=== PATIENT | male | born 1945 | race Caucasian/White ===

== ENCOUNTER 2020-11-14 12:29 | Inpatient (IN) ==
[2020-11-14 13:54] LABS: Basophils % 0.1 % (0.0-0.8); Hematocrit 41.7 VOL% (42.0-52.0); Immature Granulocytes % 0.4 %; Immature Granulocytes Absolute 0.03 #; Lymphocytes # 0.6 10*3/uL (1.4-4.0); Lymphocytes % 7.8 % (21.2-54.2); Mean Corpuscular Volume 83.2 FL (87-102); Mean Platelet Volume 10.1 FL (9.6-12.0); Monocytes % 5.2 % (1.7-12.7); Neutrophils % 86.5 % (38.7-73.9); Platelet Count 260 T/CUMM (130-400); Red Blood Count 5.01 MC/CUMM (3.8-5.5); Red Cell Distribution Width 12.2 % (9.3-17.3); White Blood Count 8.1 T/CUMM (4-12)
[2020-11-14 13:57] LABS: INR 1.2; PT Patient Result 12.4 SECS (9.8-11.9)
[2020-11-14 14:12] LABS: Alanine Aminotransferase 32 U/L (16-61); Alkaline Phosphatase 66 U/L (45-117); Aspartate Amino Transferase 42 U/L (0-37); Blood Urea Nitrogen 34 MG/DL (7-18); Carbon Dioxide 27 MMOL/L (21-32); Estimated Glom Filtration Rate 84 ML/MIN; Ferritin 758.8 ng/ml (26-388); Glucose 282 MG/DL (74-106); Osmolality,Calculated 281.5 MOS/KG (273-304); Potassium 3.2 MMOL/L (3.5-5.1); Sodium 132 MMOL/L (136-145); Total Protein 7.6 G/DL (6.4-8.3)
[2020-11-14] MEDS ORDERED: ENOXAPARIN 100 MG/ML SYRINGE SUBCUT STA (14:18)
[2020-11-14] MEDS ORDERED: GLUCAGON 1 MG VIAL IM PRN (15:55)
[2020-11-14] MEDS ORDERED: DOCUSATE SODIUM 100 MG CAPSULE PO PRN (15:55)
[2020-11-14] MEDS ORDERED: hydrALAZINE 20 MG/1 ML VIAL IV PRN (15:55)
[2020-11-14] MEDS ORDERED: AZITHROMYCIN INJ 500 MG in SODIUM CHLORIDE 0.9% 250 ML IV ONE (16:05)
[2020-11-14] MEDS ORDERED: ENOXAPARIN 40 MG/0.4 ML SYRINGE SUBCUT SCH (16:30)
[2020-11-14] MEDS: SODIUM CHLORIDE 0.9% 1,000 ML IV SCH ×2 (17:15→23:12)
[2020-11-14] MEDS: INSULIN LISPRO 100 UNIT/ML SUBCUT SCH ×2 (17:51→20:20)
[2020-11-14] MEDS: ACETAMINOPHEN 325 MG TABLET PO PRN (20:20)
[2020-11-14] MEDS: FAMOTIDINE 20 MG TABLET PO SCH (20:20)
[2020-11-14] MEDS: MELATONIN 3 MG TABLET PO PRN (20:20)
[2020-11-14] MEDS: ASCORBIC ACID 500 MG TABLET PO SCH (20:20)
[2020-11-15 05:34] LABS: Basophils % 0.1 % (0.0-0.8); Eosinophils % 0.1 % (0.00-10.9); Hemoglobin 13.3 GM/DL (14.0-18.0); Immature Granulocytes % 0.8 %; Immature Granulocytes Absolute 0.06 #; Lymphocytes # 0.8 10*3/uL (1.4-4.0); Lymphocytes % 10.9 % (21.2-54.2); Mean Corpuscular Volume 87.2 FL (87-102); Mean Platelet Volume 9.8 FL (9.6-12.0); Monocytes % 4.5 % (1.7-12.7); Neutrophils % 83.6 % (38.7-73.9); Platelet Count 237 T/CUMM (130-400); Red Blood Count 4.36 MC/CUMM (3.8-5.5); Red Cell Distribution Width 12.4 % (9.3-17.3); White Blood Count 7.6 T/CUMM (4-12)
[2020-11-15 05:56] LABS: Albumin 2.4 G/DL (3.4-5.0); Calcium 8.3 MG/DL (8.5-10.1); Ferritin 709.6 ng/ml (26-388); Osmolality,Calculated 284.8 MOS/KG (273-304); Risk Ratio 3.04; Thyroid Stimulating Hormone 0.742 uIU/ml (0.358-3.74); Total Protein 6.4 G/DL (6.4-8.3)
[2020-11-15 05:58] LABS: Band Neutrophils 1 % (0-10); Hypochromasia Slight; Lymphocytes 11 % (20-55); Microcytosis Slight; Platelet Estimate Adequate; Segmented Neutrophils 87 % (50-85); Total Cells Counted 100
[2020-11-15 07:07] LABS: Sedimentation Rate-Westergren 81 MM/HR (0-20)
[2020-11-15] MEDS: AZITHROMYCIN 250 MG TABLET PO SCH (08:16)
[2020-11-15] MEDS: POTASSIUM CHLORIDE 20 MEQ TABLET PO PRN ×4 (08:16→14:09)
[2020-11-15] MEDS: DEXAMETHASONE 4 MG/1 ML VIAL IV SCH (08:16)
[2020-11-15] MEDS: ZINC GLUCONATE 50 MG TABLET PO SCH (08:17)
[2020-11-15] MEDS: FAMOTIDINE 20 MG TABLET PO SCH ×2 (08:17→22:23)
[2020-11-15] MEDS: ASCORBIC ACID 500 MG TABLET PO SCH ×2 (08:17→22:23)
[2020-11-15] MEDS: CHOLECALCIFEROL 1,000 UNIT TABLET PO SCH (08:17)
[2020-11-15] MEDS: INSULIN LISPRO 100 UNIT/ML SUBCUT SCH ×4 (08:44→22:23)
[2020-11-15] MEDS: ENOXAPARIN 40 MG/0.4 ML SYRINGE SUBCUT SCH (09:20)
[2020-11-15] MEDS: SODIUM CHLORIDE 0.9% 1,000 ML IV SCH (11:28)
[2020-11-15] MEDS: TAMSULOSIN 0.4 MG CAPSULE PO SCH (14:07)
[2020-11-15] MEDS: ACETAMINOPHEN 325 MG TABLET PO PRN (14:09)
[2020-11-15] MEDS: SIMVASTATIN 20 MG TABLET PO SCH (22:23)
[2020-11-15] MEDS: MELATONIN 3 MG TABLET PO PRN (23:16)
[2020-11-16 05:43] LABS: Basophils % 0.1 % (0.0-0.8); Hematocrit 36.6 VOL% (42.0-52.0); Immature Granulocytes % 0.7 %; Immature Granulocytes Absolute 0.05 #; Lymphocytes # 0.6 10*3/uL (1.4-4.0); Lymphocytes % 8.6 % (21.2-54.2); Mean Corpuscular HGB Conc 35.5 GM/DL (32-36); Mean Corpuscular Volume 86.1 FL (87-102); Monocytes % 4.6 % (1.7-12.7); Platelet Count 278 T/CUMM (130-400); Red Blood Count 4.25 MC/CUMM (3.8-5.5); Red Cell Distribution Width 12.2 % (9.3-17.3); White Blood Count 6.7 T/CUMM (4-12)
[2020-11-16 06:05] LABS: Albumin 2.2 G/DL (3.4-5.0); Bilirubin,Total 0.6 MG/DL (0.2-1.0); Calcium 8.3 MG/DL (8.5-10.1); Ferritin 677.4 ng/ml (26-388); Osmolality,Calculated 289.5 MOS/KG (273-304); Potassium 3.8 MMOL/L (3.5-5.1); Total Protein 6.4 G/DL (6.4-8.3)
[2020-11-16 07:25] LABS: Sedimentation Rate-Westergren 88 MM/HR (0-20)
[2020-11-16] MEDS: ENOXAPARIN 40 MG/0.4 ML SYRINGE SUBCUT SCH (08:32)
[2020-11-16] MEDS: INSULIN LISPRO 100 UNIT/ML SUBCUT SCH ×4 (08:32→21:33)
[2020-11-16] MEDS: ASPIRIN EC 81 MG TABLET PO SCH (08:32)
[2020-11-16] MEDS: DEXAMETHASONE 4 MG/1 ML VIAL IV SCH (08:32)
[2020-11-16] MEDS: AZITHROMYCIN 250 MG TABLET PO SCH (08:32)
[2020-11-16] MEDS: TAMSULOSIN 0.4 MG CAPSULE PO SCH (08:32)
[2020-11-16] MEDS: FAMOTIDINE 20 MG TABLET PO SCH ×2 (08:33→21:20)
[2020-11-16] MEDS: ZINC GLUCONATE 50 MG TABLET PO SCH (08:33)
[2020-11-16] MEDS: ASCORBIC ACID 500 MG TABLET PO SCH ×2 (08:33→21:19)
[2020-11-16] MEDS: lisinopriL 10 MG TABLET PO SCH (08:33)
[2020-11-16] MEDS: CHOLECALCIFEROL 1,000 UNIT TABLET PO SCH (08:33)
[2020-11-16] MEDS: GLIMEPIRIDE 4 MG TABLET PO SCH (08:34)
[2020-11-16] MEDS ORDERED: SODIUM CHLORIDE 0.9% 1,000 ML IV PRN (13:26)
[2020-11-16] MEDS: SIMVASTATIN 20 MG TABLET PO SCH (21:19)
[2020-11-16] MEDS: MELATONIN 3 MG TABLET PO PRN (21:20)
[2020-11-17 05:03] LABS: Hematocrit 38.1 VOL% (42.0-52.0); Hemoglobin 13.4 GM/DL (14.0-18.0); Immature Granulocytes % 0.7 %; Immature Granulocytes Absolute 0.06 #; Lymphocytes # 0.6 10*3/uL (1.4-4.0); Lymphocytes % 7.3 % (21.2-54.2); Mean Corpuscular HGB Conc 35.2 GM/DL (32-36); Mean Corpuscular Volume 85.8 FL (87-102); Mean Platelet Volume 9.6 FL (9.6-12.0); Platelet Count 324 T/CUMM (130-400); Red Blood Count 4.44 MC/CUMM (3.8-5.5); White Blood Count 8.2 T/CUMM (4-12)
[2020-11-17 05:33] LABS: Albumin 2.2 G/DL (3.4-5.0); Bilirubin,Total 0.8 MG/DL (0.2-1.0); Calcium 8.6 MG/DL (8.5-10.1); Osmolality,Calculated 290.5 MOS/KG (273-304); Potassium 3.9 MMOL/L (3.5-5.1); Total Protein 6.3 G/DL (6.4-8.3)
[2020-11-17] MEDS: ASPIRIN EC 81 MG TABLET PO SCH (09:40)
[2020-11-17] MEDS: lisinopriL 10 MG TABLET PO SCH (09:40)
[2020-11-17] MEDS: GLIMEPIRIDE 4 MG TABLET PO SCH (09:40)
[2020-11-17] MEDS: ASCORBIC ACID 500 MG TABLET PO SCH ×2 (09:40→20:29)
[2020-11-17] MEDS: TAMSULOSIN 0.4 MG CAPSULE PO SCH (09:40)
[2020-11-17] MEDS: CHOLECALCIFEROL 1,000 UNIT TABLET PO SCH (09:40)
[2020-11-17] MEDS: AZITHROMYCIN 250 MG TABLET PO SCH (09:40)
[2020-11-17] MEDS: ZINC GLUCONATE 50 MG TABLET PO SCH (09:40)
[2020-11-17] MEDS: FAMOTIDINE 20 MG TABLET PO SCH ×2 (09:40→20:30)
[2020-11-17] MEDS: DEXAMETHASONE 4 MG/1 ML VIAL IV SCH (09:46)
[2020-11-17] MEDS: INSULIN LISPRO 100 UNIT/ML SUBCUT SCH ×4 (09:46→20:30)
[2020-11-17] MEDS: ENOXAPARIN 40 MG/0.4 ML SYRINGE SUBCUT SCH (09:47)
[2020-11-17] MEDS: ONDANSETRON 4 MG/2 ML VIAL IV PRN ×2 (10:04→16:06)
[2020-11-17] MEDS: ACETAMINOPHEN 325 MG TABLET PO PRN (20:30)
[2020-11-17] MEDS: SIMVASTATIN 20 MG TABLET PO SCH (20:30)
[2020-11-17] MEDS: MELATONIN 3 MG TABLET PO PRN (20:30)
[2020-11-18] MEDS: ENOXAPARIN 100 MG/ML SYRINGE SUBCUT SCH ×2 (02:30→11:52)
[2020-11-18 04:40] LABS: Basophils % 0.2 % (0.0-0.8); Eosinophils % 0.2 % (0.00-10.9); Hematocrit 36.2 VOL% (42.0-52.0); Hemoglobin 12.6 GM/DL (14.0-18.0); Immature Granulocytes % 0.6 %; Immature Granulocytes Absolute 0.04 #; Lymphocytes # 0.5 10*3/uL (1.4-4.0); Lymphocytes % 7.1 % (21.2-54.2); Mean Corpuscular HGB Conc 34.8 GM/DL (32-36); Mean Corpuscular Volume 87.4 FL (87-102); Mean Platelet Volume 9.8 FL (9.6-12.0); Monocytes % 3.9 % (1.7-12.7); Platelet Count 333 T/CUMM (130-400); Red Blood Count 4.14 MC/CUMM (3.8-5.5); Red Cell Distribution Width 12.1 % (9.3-17.3); White Blood Count 6.5 T/CUMM (4-12)
[2020-11-18 05:01] LABS: Albumin 2.4 G/DL (3.4-5.0); Bilirubin,Total 0.7 MG/DL (0.2-1.0); Calcium 8.8 MG/DL (8.5-10.1); Osmolality,Calculated 286.5 MOS/KG (273-304); Potassium 3.6 MMOL/L (3.5-5.1); Total Protein 6.3 G/DL (6.4-8.3)
[2020-11-18] MEDS ORDERED: ALBUTEROL INHALER 18 GM INH PRN (06:59)
[2020-11-18] MEDS: ONDANSETRON 4 MG/2 ML VIAL IV PRN (07:19)
[2020-11-18] MEDS: lisinopriL 10 MG TABLET PO SCH (08:07)
[2020-11-18] MEDS: ASPIRIN EC 81 MG TABLET PO SCH (08:07)
[2020-11-18] MEDS: AZITHROMYCIN 250 MG TABLET PO SCH (08:07)
[2020-11-18] MEDS: DEXAMETHASONE 4 MG/1 ML VIAL IV SCH (08:07)
[2020-11-18] MEDS: FAMOTIDINE 20 MG TABLET PO SCH ×2 (08:07→20:23)
[2020-11-18] MEDS: TAMSULOSIN 0.4 MG CAPSULE PO SCH (08:07)
[2020-11-18] MEDS: ZINC GLUCONATE 50 MG TABLET PO SCH (08:07)
[2020-11-18] MEDS: GLIMEPIRIDE 4 MG TABLET PO SCH (08:07)
[2020-11-18] MEDS: CHOLECALCIFEROL 1,000 UNIT TABLET PO SCH (08:07)
[2020-11-18] MEDS: ASCORBIC ACID 500 MG TABLET PO SCH ×2 (08:07→20:23)
[2020-11-18] MEDS: ALBUTEROL INHALER 18 GM INH SCH ×4 (09:31→18:33)
[2020-11-18] MEDS: INSULIN LISPRO 100 UNIT/ML SUBCUT SCH ×4 (09:32→20:23)
[2020-11-18] MEDS: FLUTICASONE 50 MCG NASAL SPRAY 16 GM BOTTLE BOTH NARES SCH ×2 (10:15→20:23)
[2020-11-18] MEDS: LACTULOSE 20 GM/30 ML UDCUP PO PRN (14:39)
[2020-11-18] MEDS: SIMVASTATIN 20 MG TABLET PO SCH (20:23)
[2020-11-18] MEDS: ACETAMINOPHEN 325 MG TABLET PO PRN (20:23)
[2020-11-18] MEDS: MELATONIN 3 MG TABLET PO PRN (20:23)
[2020-11-19] MEDS: ENOXAPARIN 100 MG/ML SYRINGE SUBCUT SCH ×2 (00:30→13:35)
[2020-11-19] MEDS: ALBUTEROL INHALER 18 GM INH SCH ×7 (00:30→23:15)
[2020-11-19] MEDS: CHOLECALCIFEROL 1,000 UNIT TABLET PO SCH (08:24)
[2020-11-19] MEDS: GLIMEPIRIDE 4 MG TABLET PO SCH (08:24)
[2020-11-19] MEDS: LORazepam 0.5 MG TABLET PO ONE ×2 (08:25→09:29)
[2020-11-19] MEDS: FAMOTIDINE 20 MG TABLET PO SCH ×2 (08:25→20:59)
[2020-11-19] MEDS: ZINC GLUCONATE 50 MG TABLET PO SCH (08:25)
[2020-11-19] MEDS: TAMSULOSIN 0.4 MG CAPSULE PO SCH (08:25)
[2020-11-19] MEDS: ASCORBIC ACID 500 MG TABLET PO SCH ×2 (08:25→20:59)
[2020-11-19] MEDS: lisinopriL 10 MG TABLET PO SCH (08:25)
[2020-11-19] MEDS: ASPIRIN EC 81 MG TABLET PO SCH (08:25)
[2020-11-19] MEDS: DEXAMETHASONE 4 MG/1 ML VIAL IV SCH (08:25)
[2020-11-19] MEDS: FLUTICASONE 50 MCG NASAL SPRAY 16 GM BOTTLE BOTH NARES SCH ×2 (09:13→21:01)
[2020-11-19] MEDS: INSULIN LISPRO 100 UNIT/ML SUBCUT SCH ×4 (09:13→20:58)
[2020-11-19 09:14] LABS: Basophils % 0.1 % (0.0-0.8); Eosinophils # 0.1 10*3/uL (0.0-0.87); Eosinophils % 1.2 % (0.00-10.9); Hemoglobin 13.4 GM/DL (14.0-18.0); Immature Granulocytes % 0.7 %; Immature Granulocytes Absolute 0.05 #; Lymphocytes # 0.4 10*3/uL (1.4-4.0); Lymphocytes % 5.6 % (21.2-54.2); Mean Corpuscular HGB Conc 35.3 GM/DL (32-36); Mean Platelet Volume 9.8 FL (9.6-12.0); Monocytes % 3.4 % (1.7-12.7); Platelet Count 413 T/CUMM (130-400); Red Blood Count 4.42 MC/CUMM (3.8-5.5); Red Cell Distribution Width 12.2 % (9.3-17.3); White Blood Count 7.4 T/CUMM (4-12)
[2020-11-19 09:39] LABS: Albumin 2.4 G/DL (3.4-5.0); Bilirubin,Total 0.7 MG/DL (0.2-1.0); Calcium 8.9 MG/DL (8.5-10.1); Osmolality,Calculated 283.7 MOS/KG (273-304); Total Protein 6.8 G/DL (6.4-8.3)
[2020-11-19] MEDS ORDERED: ALUMINUM/MAGNES/SIMETH MAX STR 30 ML UDCUP PO PRN (09:58)
[2020-11-19] MEDS: SIMVASTATIN 20 MG TABLET PO SCH (20:59)
[2020-11-19] MEDS: MELATONIN 3 MG TABLET PO PRN (20:59)
[2020-11-20] MEDS: ENOXAPARIN 100 MG/ML SYRINGE SUBCUT SCH ×2 (01:47→11:47)
[2020-11-20] MEDS: ALBUTEROL INHALER 18 GM INH SCH ×5 (03:57→18:33)
[2020-11-20 06:21] LABS: Albumin 2.2 G/DL (3.4-5.0); Bilirubin,Total 0.6 MG/DL (0.2-1.0); Calcium 8.6 MG/DL (8.5-10.1); Ferritin 637.9 ng/ml (26-388); Osmolality,Calculated 274.1 MOS/KG (273-304); Potassium 3.7 MMOL/L (3.5-5.1); Total Protein 6.4 G/DL (6.4-8.3)
[2020-11-20] MEDS ORDERED: LORazepam 0.5 MG TABLET PO ONE (07:37)
[2020-11-20] MEDS: INSULIN LISPRO 100 UNIT/ML SUBCUT SCH ×7 (07:51→22:49)
[2020-11-20] MEDS: GLIMEPIRIDE 4 MG TABLET PO SCH (08:05)
[2020-11-20] MEDS: ASCORBIC ACID 500 MG TABLET PO SCH ×2 (08:06→20:50)
[2020-11-20] MEDS: FAMOTIDINE 20 MG TABLET PO SCH ×2 (08:06→20:50)
[2020-11-20] MEDS: ASPIRIN EC 81 MG TABLET PO SCH (08:06)
[2020-11-20] MEDS: FLUTICASONE 50 MCG NASAL SPRAY 16 GM BOTTLE BOTH NARES SCH ×2 (08:06→20:50)
[2020-11-20] MEDS: TAMSULOSIN 0.4 MG CAPSULE PO SCH (08:06)
[2020-11-20] MEDS: ZINC GLUCONATE 50 MG TABLET PO SCH (08:06)
[2020-11-20] MEDS: lisinopriL 10 MG TABLET PO SCH (08:06)
[2020-11-20] MEDS: CHOLECALCIFEROL 1,000 UNIT TABLET PO SCH (08:06)
[2020-11-20] MEDS: DEXAMETHASONE 4 MG/1 ML VIAL IV SCH (08:06)
[2020-11-20] MEDS ORDERED: LORazepam 0.5 MG TABLET PO PRN (15:48)
[2020-11-20] MEDS: MELATONIN 3 MG TABLET PO PRN (20:50)
[2020-11-20] MEDS: SIMVASTATIN 20 MG TABLET PO SCH (20:50)
[2020-11-21] MEDS: ENOXAPARIN 100 MG/ML SYRINGE SUBCUT SCH ×2 (01:24→11:45)
[2020-11-21] MEDS: ALBUTEROL INHALER 18 GM INH SCH ×7 (01:24→22:02)
[2020-11-21] MEDS: ASCORBIC ACID 500 MG TABLET PO SCH ×2 (08:18→22:02)
[2020-11-21] MEDS: FAMOTIDINE 20 MG TABLET PO SCH ×2 (08:19→22:02)
[2020-11-21] MEDS: CHOLECALCIFEROL 1,000 UNIT TABLET PO SCH (08:19)
[2020-11-21] MEDS: lisinopriL 10 MG TABLET PO SCH (08:20)
[2020-11-21] MEDS: ASPIRIN EC 81 MG TABLET PO SCH (08:20)
[2020-11-21] MEDS: ZINC GLUCONATE 50 MG TABLET PO SCH (08:20)
[2020-11-21] MEDS: TAMSULOSIN 0.4 MG CAPSULE PO SCH (08:20)
[2020-11-21] MEDS: GLIMEPIRIDE 4 MG TABLET PO SCH (08:20)
[2020-11-21] MEDS: INSULIN LISPRO 100 UNIT/ML SUBCUT SCH ×6 (08:22→18:50)
[2020-11-21] MEDS: DEXAMETHASONE 4 MG/1 ML VIAL IV SCH (08:24)
[2020-11-21] MEDS: FLUTICASONE 50 MCG NASAL SPRAY 16 GM BOTTLE BOTH NARES SCH ×2 (08:25→22:02)
[2020-11-21 10:39] LABS: Basophils % 0.1 % (0.0-0.8); Eosinophils % 0.4 % (0.00-10.9); Hematocrit 35.4 VOL% (42.0-52.0); Hemoglobin 12.5 GM/DL (14.0-18.0); Immature Granulocytes % 0.7 %; Immature Granulocytes Absolute 0.06 #; Lymphocytes # 0.3 10*3/uL (1.4-4.0); Lymphocytes % 3.1 % (21.2-54.2); Mean Corpuscular HGB Conc 35.3 GM/DL (32-36); Mean Corpuscular Volume 85.1 FL (87-102); Mean Platelet Volume 9.5 FL (9.6-12.0); Monocytes % 4.5 % (1.7-12.7); Neutrophils % 91.2 % (38.7-73.9); Platelet Count 391 T/CUMM (130-400); Red Blood Count 4.16 MC/CUMM (3.8-5.5); Red Cell Distribution Width 12.1 % (9.3-17.3); White Blood Count 8.5 T/CUMM (4-12)
[2020-11-21 10:51] LABS: Lymphocytes 3 % (20-55); Platelet Estimate Adequate; Segmented Neutrophils 93 % (50-85); Total Cells Counted 100
[2020-11-21 11:03] LABS: Albumin 2.3 G/DL (3.4-5.0); Bilirubin,Total 0.7 MG/DL (0.2-1.0); Calcium 8.4 MG/DL (8.5-10.1); Ferritin 723.7 ng/ml (26-388); Osmolality,Calculated 278.8 MOS/KG (273-304); Potassium 3.6 MMOL/L (3.5-5.1); Total Protein 6.3 G/DL (6.4-8.3)
[2020-11-21] MEDS ORDERED: FUROSEMIDE 40 MG/4 ML VIAL IV ONE (11:57)
[2020-11-21] MEDS: MEROPENEM 500 MG in SODIUM CHLORIDE 0.9% 100 ML IV SCH ×2 (14:40→23:03)
[2020-11-21] MEDS: MELATONIN 3 MG TABLET PO PRN (22:02)
[2020-11-21] MEDS: SIMVASTATIN 20 MG TABLET PO SCH (22:02)
[2020-11-22] MEDS: ENOXAPARIN 100 MG/ML SYRINGE SUBCUT SCH ×2 (00:50→12:29)
[2020-11-22] MEDS: INSULIN LISPRO 100 UNIT/ML SUBCUT SCH ×8 (02:04→22:30)
[2020-11-22] MEDS ORDERED: ADENOSINE 6 MG/2 ML VIAL IV ONE (03:28)
[2020-11-22] MEDS: ALBUTEROL INHALER 18 GM INH SCH ×5 (04:50→22:00)
[2020-11-22] MEDS: MEROPENEM 500 MG in SODIUM CHLORIDE 0.9% 100 ML IV SCH ×4 (04:51→22:30)
[2020-11-22] MEDS ORDERED: AMIODARONE 150 MG/3 ML VIAL ONE (05:06)
[2020-11-22] MEDS ORDERED: AMIODARONE 450 MG/9 ML VIAL IV ONE (05:07)
[2020-11-22] MEDS ORDERED: AMIODARONE INJ 150 MG in DEXTROSE 5% 100 ML IV ONE (05:20)
[2020-11-22] MEDS ORDERED: AMIODARONE INJ 450 MG in DEXTROSE 5% 241 ML IV SCH (05:30)
[2020-11-22] MEDS: FAMOTIDINE 20 MG TABLET PO SCH ×2 (09:45→22:05)
[2020-11-22] MEDS: DEXAMETHASONE 4 MG/1 ML VIAL IV SCH (09:47)
[2020-11-22] MEDS: ASCORBIC ACID 500 MG TABLET PO SCH ×2 (09:48→22:05)
[2020-11-22] MEDS: TAMSULOSIN 0.4 MG CAPSULE PO SCH (09:48)
[2020-11-22] MEDS: lisinopriL 10 MG TABLET PO SCH (09:48)
[2020-11-22] MEDS: ZINC GLUCONATE 50 MG TABLET PO SCH (09:48)
[2020-11-22] MEDS: CHOLECALCIFEROL 1,000 UNIT TABLET PO SCH (09:48)
[2020-11-22] MEDS: GLIMEPIRIDE 4 MG TABLET PO SCH (09:48)
[2020-11-22] MEDS: ASPIRIN EC 81 MG TABLET PO SCH (09:48)
[2020-11-22] MEDS: FLUTICASONE 50 MCG NASAL SPRAY 16 GM BOTTLE BOTH NARES SCH ×2 (10:00→22:00)
[2020-11-22] MEDS ORDERED: POTASSIUM CHLORIDE 20 MEQ TABLET PO ONE (11:38)
[2020-11-22] MEDS: METOPROLOL TARTRATE 25 MG TABLET PO SCH ×2 (12:28→22:05)
[2020-11-22] MEDS: AMIODARONE INJ 450 MG in DEXTROSE 5% 241 ML IV SCH (12:28)
[2020-11-22] MEDS: MELATONIN 3 MG TABLET PO PRN (22:05)
[2020-11-22] MEDS: SIMVASTATIN 20 MG TABLET PO SCH (22:05)
[2020-11-22] MEDS: ACETAMINOPHEN 325 MG TABLET PO PRN (22:05)
[2020-11-23] MEDS: ENOXAPARIN 100 MG/ML SYRINGE SUBCUT SCH ×2 (00:18→11:37)
[2020-11-23] MEDS: AMIODARONE INJ 450 MG in DEXTROSE 5% 241 ML IV SCH (02:10)
[2020-11-23] MEDS: ALBUTEROL INHALER 18 GM INH SCH ×6 (03:32→22:54)
[2020-11-23] MEDS: MEROPENEM 500 MG in SODIUM CHLORIDE 0.9% 100 ML IV SCH ×4 (03:32→22:50)
[2020-11-23 05:46] LABS: Basophils % 0.2 % (0.0-0.8); Hematocrit 40.5 VOL% (42.0-52.0); Immature Granulocytes % 1.1 %; Immature Granulocytes Absolute 0.22 #; Lymphocytes # 0.4 10*3/uL (1.4-4.0); Lymphocytes % 2.2 % (21.2-54.2); Mean Corpuscular HGB Conc 34.6 GM/DL (32-36); Mean Corpuscular Volume 87.3 FL (87-102); Mean Platelet Volume 9.7 FL (9.6-12.0); Monocytes % 4.3 % (1.7-12.7); Neutrophils % 92.2 % (38.7-73.9); Platelet Count 455 T/CUMM (130-400); Red Blood Count 4.64 MC/CUMM (3.8-5.5); Red Cell Distribution Width 12.6 % (9.3-17.3); White Blood Count 19.6 T/CUMM (4-12)
[2020-11-23 06:07] LABS: Hypochromasia 1+; Lymphocytes 3 % (20-55); Microcytosis 1+; Platelet Estimate Adequate; Segmented Neutrophils 92 % (50-85); Total Cells Counted 100
[2020-11-23 06:10] LABS: Calcium 9.1 MG/DL (8.5-10.1); Osmolality,Calculated 288.5 MOS/KG (273-304)
[2020-11-23] MEDS ORDERED: MORPHINE 4 MG/1 ML VIAL IV ONE (06:55)
[2020-11-23] MEDS: AMIODARONE 200 MG TABLET PO SCH ×2 (09:50→22:53)
[2020-11-23] MEDS: FAMOTIDINE 20 MG TABLET PO SCH ×2 (09:50→22:53)
[2020-11-23] MEDS: ASCORBIC ACID 500 MG TABLET PO SCH ×2 (09:50→22:52)
[2020-11-23] MEDS: GLIMEPIRIDE 4 MG TABLET PO SCH (09:50)
[2020-11-23] MEDS: ZINC GLUCONATE 50 MG TABLET PO SCH (09:50)
[2020-11-23] MEDS: DEXAMETHASONE 4 MG/1 ML VIAL IV SCH (09:50)
[2020-11-23] MEDS: ASPIRIN EC 81 MG TABLET PO SCH (09:50)
[2020-11-23] MEDS: lisinopriL 10 MG TABLET PO SCH (09:50)
[2020-11-23] MEDS: CHOLECALCIFEROL 1,000 UNIT TABLET PO SCH (09:50)
[2020-11-23] MEDS: FLUTICASONE 50 MCG NASAL SPRAY 16 GM BOTTLE BOTH NARES SCH ×2 (09:50→22:54)
[2020-11-23] MEDS: METOPROLOL TARTRATE 25 MG TABLET PO SCH ×2 (09:50→22:53)
[2020-11-23] MEDS: TAMSULOSIN 0.4 MG CAPSULE PO SCH (09:50)
[2020-11-23] MEDS: LORazepam 2 MG/1 ML VIAL IV PRN ×3 (09:53→22:52)
[2020-11-23] MEDS: INSULIN LISPRO 100 UNIT/ML SUBCUT SCH ×7 (11:06→22:53)
[2020-11-23] MEDS ORDERED: ALUM/MAG/SIMETH/LIDO VISC 1:1 30 ML BOTTLE PO ONE (12:00)
[2020-11-23 13:39] LABS: ABG Base Excess 2.5 MMOL/L (-2.5-2.5); ABG HCO3 26.4 MMOL/L (20-26); ABG Oxygen Saturation 87.3 % (95-100); ABG PCO2 37.6 MM HG (35-48); ABG PH 7.453 (7.35-7.45); ABG TCO2 23.1 MMOL/L (23-27)
[2020-11-23] MEDS ORDERED: FUROSEMIDE 40 MG/4 ML VIAL IV ONE (16:04)
[2020-11-23] MEDS: ACETAMINOPHEN 325 MG TABLET PO PRN (22:52)
[2020-11-23] MEDS: MELATONIN 3 MG TABLET PO PRN (22:52)
[2020-11-23] MEDS: SIMVASTATIN 20 MG TABLET PO SCH (22:53)
[2020-11-24] MEDS: ENOXAPARIN 100 MG/ML SYRINGE SUBCUT SCH ×2 (00:27→17:22)
[2020-11-24] MEDS ORDERED: LORazepam 2 MG/1 ML VIAL IV PRN (02:03)
[2020-11-24] MEDS: LORazepam 2 MG/1 ML VIAL IV PRN (02:05)
[2020-11-24] MEDS: MEROPENEM 500 MG in SODIUM CHLORIDE 0.9% 100 ML IV SCH ×4 (04:36→20:39)
[2020-11-24 05:27] LABS: ABG Base Excess 3.1 MMOL/L (-2.5-2.5); ABG HCO3 26.9 MMOL/L (20-26); ABG PCO2 42.5 MM HG (35-48); ABG PH 7.424 (7.35-7.45); ABG PO2 48.8 MM HG (80-95); ABG TCO2 25.1 MMOL/L (23-27); Allen Test Positive; Pt O2 Delivery Device Other
[2020-11-24 06:00] LABS: Basophils % 0.2 % (0.0-0.8); Hemoglobin 13.6 GM/DL (14.0-18.0); Immature Granulocytes % 0.7 %; Immature Granulocytes Absolute 0.14 #; Lymphocytes # 0.4 10*3/uL (1.4-4.0); Mean Corpuscular HGB Conc 34.9 GM/DL (32-36); Mean Corpuscular Volume 86.5 FL (87-102); Mean Platelet Volume 9.6 FL (9.6-12.0); Neutrophils % 93.1 % (38.7-73.9); Platelet Count 406 T/CUMM (130-400); Red Blood Count 4.51 MC/CUMM (3.8-5.5); Red Cell Distribution Width 12.5 % (9.3-17.3); White Blood Count 19.6 T/CUMM (4-12)
[2020-11-24 06:27] LABS: Calcium 8.9 MG/DL (8.5-10.1); Osmolality,Calculated 292.4 MOS/KG (273-304); Potassium 3.4 MMOL/L (3.5-5.1)
[2020-11-24] MEDS: ALBUTEROL INHALER 18 GM INH SCH ×6 (06:35→23:10)
[2020-11-24 06:49] LABS: Total Cells Counted 100
[2020-11-24 06:50] LABS: Lymphocytes 3 % (20-55); Platelet Estimate Normal; Segmented Neutrophils 94 % (50-85)
[2020-11-24] MEDS: INSULIN LISPRO 100 UNIT/ML SUBCUT SCH ×4 (08:36→17:26)
[2020-11-24] MEDS: DEXAMETHASONE 4 MG/1 ML VIAL IV SCH (08:37)
[2020-11-24] MEDS ORDERED: SUCCINYLCHOLINE 200 MG/10 ML VIAL ONE (09:43)
[2020-11-24] MEDS ORDERED: ETOMIDATE 20 MG/10 ML VIAL IV ONE ×2 (09:43→09:48)
[2020-11-24] MEDS ORDERED: SUCCINYLCHOLINE 200 MG/10 ML VIAL IV ONE (09:49)
[2020-11-24 10:45] LABS: ABG Base Excess 2.8 MMOL/L (-2.5-2.5); ABG HCO3 26.6 MMOL/L (20-26); ABG Oxygen Saturation 87.2 % (95-100); ABG PCO2 51.2 MM HG (35-48); ABG PH 7.366 (7.35-7.45); ABG PO2 58.9 MM HG (80-95); ABG TCO2 25.6 MMOL/L (23-27); Pt O2 Delivery Device Ventilator
[2020-11-24] MEDS: lisinopriL 10 MG TABLET PO SCH (11:26)
[2020-11-24] MEDS: GLIMEPIRIDE 4 MG TABLET PO SCH (11:26)
[2020-11-24] MEDS: METOPROLOL TARTRATE 25 MG TABLET PO SCH (11:27)
[2020-11-24] MEDS: ASPIRIN EC 81 MG TABLET PO SCH (11:38)
[2020-11-24] MEDS: FAMOTIDINE 20 MG TABLET PO SCH ×2 (11:38→20:40)
[2020-11-24] MEDS: ZINC GLUCONATE 50 MG TABLET PO SCH (11:38)
[2020-11-24] MEDS: AMIODARONE 200 MG TABLET PO SCH ×2 (11:38→20:40)
[2020-11-24] MEDS: fentaNYL INJ 2,500 MCG in SODIUM CHLORIDE 0.9% 450 ML IV PRN (11:38)
[2020-11-24] MEDS: TAMSULOSIN 0.4 MG CAPSULE PO SCH (11:39)
[2020-11-24] MEDS: ASCORBIC ACID 500 MG TABLET PO SCH ×2 (11:39→20:40)
[2020-11-24] MEDS: CHOLECALCIFEROL 1,000 UNIT TABLET PO SCH (11:39)
[2020-11-24] MEDS: FLUTICASONE 50 MCG NASAL SPRAY 16 GM BOTTLE BOTH NARES SCH ×2 (12:09→20:24)
[2020-11-24] MEDS: MIDAZOLAM 100 MG in SODIUM CHLORIDE 0.9% 80 ML IV PRN (14:10)
[2020-11-24] MEDS ORDERED: SODIUM CHLORIDE 0.9% 500 ML IV ONE (17:32)
[2020-11-24] MEDS: SIMVASTATIN 20 MG TABLET PO SCH (20:40)
[2020-11-25] MEDS: INSULIN LISPRO 100 UNIT/ML SUBCUT SCH ×4 (00:40→17:33)
[2020-11-25] MEDS: fentaNYL INJ 2,500 MCG in SODIUM CHLORIDE 0.9% 450 ML IV PRN ×2 (01:50→21:00)
[2020-11-25] MEDS: PHENYLEPHRINE DRIP 40 MG/250 ML PREMIX IV PRN ×3 (02:40→17:14)
[2020-11-25] MEDS: ALBUTEROL INHALER 18 GM INH SCH ×6 (02:53→23:08)
[2020-11-25] MEDS: MEROPENEM 500 MG in SODIUM CHLORIDE 0.9% 100 ML IV SCH ×3 (02:53→15:04)
[2020-11-25 03:47] LABS: ABG Base Excess 3.9 MMOL/L (-2.5-2.5); ABG HCO3 27.9 MMOL/L (20-26); ABG Oxygen Saturation 99.6 % (95-100); ABG PH 7.351 (7.35-7.45); ABG TCO2 27.6 MMOL/L (23-27)
[2020-11-25 04:18] LABS: Basophils % 0.2 % (0.0-0.8); Hematocrit 39.3 VOL% (42.0-52.0); Hemoglobin 12.9 GM/DL (14.0-18.0); Immature Granulocytes Absolute 0.21 #; Lymphocytes # 0.6 10*3/uL (1.4-4.0); Lymphocytes % 2.9 % (21.2-54.2); Mean Corpuscular HGB Conc 32.8 GM/DL (32-36); Mean Corpuscular Volume 90.8 FL (87-102); Monocytes % 3.9 % (1.7-12.7); Platelet Count 487 T/CUMM (130-400); Red Blood Count 4.33 MC/CUMM (3.8-5.5); Red Cell Distribution Width 12.9 % (9.3-17.3); White Blood Count 20.6 T/CUMM (4-12)
[2020-11-25 04:42] LABS: Alanine Aminotransferase 30 U/L (16-61); Albumin 1.8 G/DL (3.4-5.0); Alkaline Phosphatase 90 U/L (45-117); Aspartate Amino Transferase 15 U/L (0-37); Bilirubin,Total < 0.39 MG/DL (0.2-1.0); Blood Urea Nitrogen 60 MG/DL (7-18); Calcium 8.8 MG/DL (8.5-10.1); Carbon Dioxide 29 MMOL/L (21-32); Estimated Glom Filtration Rate 97 ML/MIN; Glucose 238 MG/DL (74-106); Osmolality,Calculated 310.8 MOS/KG (273-304); Sodium 144 MMOL/L (136-145); Total Protein 6.3 G/DL (6.4-8.3)
[2020-11-25 04:47] LABS: Lymphocytes 3 % (20-55); Platelet Estimate Increased; Segmented Neutrophils 97 % (50-85); Total Cells Counted 100
[2020-11-25] MEDS: ENOXAPARIN 100 MG/ML SYRINGE SUBCUT SCH ×2 (05:23→17:33)
[2020-11-25] MEDS: ASPIRIN EC 81 MG TABLET PO SCH (08:01)
[2020-11-25] MEDS: CHOLECALCIFEROL 1,000 UNIT TABLET PO SCH (08:01)
[2020-11-25] MEDS: FAMOTIDINE 20 MG TABLET PO SCH ×2 (08:01→20:06)
[2020-11-25] MEDS: ZINC GLUCONATE 50 MG TABLET PO SCH (08:01)
[2020-11-25] MEDS: AMIODARONE 200 MG TABLET PO SCH ×2 (08:01→20:06)
[2020-11-25] MEDS: TAMSULOSIN 0.4 MG CAPSULE PO SCH (08:01)
[2020-11-25] MEDS: ASCORBIC ACID 500 MG TABLET PO SCH ×2 (08:01→20:06)
[2020-11-25] MEDS: MULTIVITAMIN LIQUID (CENTRUM) 60 ML BOTTLE PO SCH (08:02)
[2020-11-25] MEDS: FLUTICASONE 50 MCG NASAL SPRAY 16 GM BOTTLE BOTH NARES SCH ×2 (08:02→20:06)
[2020-11-25] MEDS: methylPREDNISolone SOD SUC 40 MG/1 ML VIAL IV SCH ×2 (09:34→17:34)
[2020-11-25] MEDS: SODIUM CHLORIDE 0.9% 1,000 ML IV SCH (12:10)
[2020-11-25] MEDS: INSULIN GLARGINE 100 UNIT/ML SUBCUT SCH (12:28)
[2020-11-25] MEDS: AZITHROMYCIN INJ 500 MG in SODIUM CHLORIDE 0.9% 250 ML IV SCH (16:02)
[2020-11-25] MEDS: MIDAZOLAM 100 MG in SODIUM CHLORIDE 0.9% 80 ML IV PRN (17:36)
[2020-11-25] MEDS: SIMVASTATIN 20 MG TABLET PO SCH (20:06)
[2020-11-25] MEDS: ACETAMINOPHEN 325 MG TABLET PO PRN (20:27)
[2020-11-26] MEDS: INSULIN LISPRO 100 UNIT/ML SUBCUT SCH ×5 (00:40→23:46)
[2020-11-26] MEDS: methylPREDNISolone SOD SUC 40 MG/1 ML VIAL IV SCH ×3 (02:04→17:31)
[2020-11-26] MEDS: ALBUTEROL INHALER 18 GM INH SCH ×6 (02:07→22:20)
[2020-11-26] MEDS: PHENYLEPHRINE DRIP 40 MG/250 ML PREMIX IV PRN (02:55)
[2020-11-26 03:36] LABS: ABG Base Excess 3.7 MMOL/L (-2.5-2.5); ABG HCO3 30.4 MMOL/L (20-26); ABG Oxygen Saturation 96.6 % (95-100); ABG PCO2 55.1 MM HG (35-48); ABG PH 7.359 (7.35-7.45); ABG TCO2 32.1 MMOL/L (23-27)
[2020-11-26 05:15] LABS: Basophils % 0.2 % (0.0-0.8); Hematocrit 39.7 VOL% (42.0-52.0); Hemoglobin 12.7 GM/DL (14.0-18.0); Immature Granulocytes % 1.1 %; Immature Granulocytes Absolute 0.14 #; Lymphocytes # 0.3 10*3/uL (1.4-4.0); Lymphocytes % 2.7 % (21.2-54.2); Mean Corpuscular Volume 91.9 FL (87-102); Mean Platelet Volume 9.7 FL (9.6-12.0); Monocytes % 3.2 % (1.7-12.7); Neutrophils % 92.8 % (38.7-73.9); Platelet Count 422 T/CUMM (130-400); Red Blood Count 4.32 MC/CUMM (3.8-5.5); Red Cell Distribution Width 12.9 % (9.3-17.3); White Blood Count 12.3 T/CUMM (4-12)
[2020-11-26 05:43] LABS: Calcium 8.7 MG/DL (8.5-10.1); Ferritin 679.9 ng/ml (26-388); Osmolality,Calculated 314.8 MOS/KG (273-304); Potassium 4.9 MMOL/L (3.5-5.1)
[2020-11-26 06:19] LABS: Atypical Lymphocytes Few; Band Neutrophils 1 % (0-10); Hypochromasia 1+; Lymphocytes 5 % (20-55); Segmented Neutrophils 90 % (50-85); Total Cells Counted 100
[2020-11-26 06:20] LABS: Microcytosis 1+
[2020-11-26] MEDS: ENOXAPARIN 100 MG/ML SYRINGE SUBCUT SCH ×2 (06:26→17:55)
[2020-11-26] MEDS: AMIODARONE 200 MG TABLET PO SCH ×2 (08:29→20:00)
[2020-11-26] MEDS: MULTIVITAMIN LIQUID (CENTRUM) 60 ML BOTTLE PO SCH (08:29)
[2020-11-26] MEDS: ASPIRIN EC 81 MG TABLET PO SCH (08:29)
[2020-11-26] MEDS: ASCORBIC ACID 500 MG TABLET PO SCH ×2 (08:30→20:00)
[2020-11-26] MEDS: FAMOTIDINE 20 MG TABLET PO SCH ×2 (08:30→20:00)
[2020-11-26] MEDS: TAMSULOSIN 0.4 MG CAPSULE PO SCH (08:30)
[2020-11-26] MEDS: FLUTICASONE 50 MCG NASAL SPRAY 16 GM BOTTLE BOTH NARES SCH ×2 (08:30→21:55)
[2020-11-26] MEDS: INSULIN GLARGINE 100 UNIT/ML SUBCUT SCH (08:30)
[2020-11-26] MEDS: CHOLECALCIFEROL 1,000 UNIT TABLET PO SCH (08:31)
[2020-11-26] MEDS: ZINC GLUCONATE 50 MG TABLET PO SCH (08:31)
[2020-11-26] MEDS ORDERED: INSULIN GLARGINE 100 UNIT/ML SUBCUT ONE (12:00)
[2020-11-26] MEDS: SODIUM CHLORIDE 0.9% 1,000 ML IV SCH (12:47)
[2020-11-26] MEDS: AZITHROMYCIN INJ 500 MG in SODIUM CHLORIDE 0.9% 250 ML IV SCH (15:34)
[2020-11-26] MEDS: fentaNYL INJ 2,500 MCG in SODIUM CHLORIDE 0.9% 450 ML IV PRN (18:51)
[2020-11-26] MEDS: SIMVASTATIN 20 MG TABLET PO SCH (20:00)
[2020-11-26] MEDS: MIDAZOLAM 100 MG in SODIUM CHLORIDE 0.9% 80 ML IV PRN (22:11)
[2020-11-27] MEDS: methylPREDNISolone SOD SUC 40 MG/1 ML VIAL IV SCH ×3 (00:30→20:23)
[2020-11-27] MEDS: ALBUTEROL INHALER 18 GM INH SCH ×6 (03:47→22:58)
[2020-11-27 03:58] LABS: Basophils # 0.1 10*3/uL (0.0-0.2); Basophils % 0.6 % (0.0-0.8); Hematocrit 40.2 VOL% (42.0-52.0); Hemoglobin 12.6 GM/DL (14.0-18.0); Immature Granulocytes % 0.9 %; Lymphocytes # 0.4 10*3/uL (1.4-4.0); Lymphocytes % 3.5 % (21.2-54.2); Mean Corpuscular HGB Conc 31.3 GM/DL (32-36); Mean Corpuscular Volume 93.5 FL (87-102); Monocytes % 4.8 % (1.7-12.7); Neutrophils % 90.2 % (38.7-73.9); Platelet Count 275 T/CUMM (130-400); Red Cell Distribution Width 12.7 % (9.3-17.3); White Blood Count 11.3 T/CUMM (4-12)
[2020-11-27 04:07] LABS: ABG Base Excess 7.1 MMOL/L (-2.5-2.5); ABG HCO3 30.8 MMOL/L (20-26); ABG Oxygen Saturation 94.9 % (95-100); ABG PCO2 61.2 MM HG (35-48); ABG PH 7.364 (7.35-7.45); ABG PO2 76.2 MM HG (80-95); ABG TCO2 30.5 MMOL/L (23-27); Allen Test Positive; Pt O2 Delivery Device Ventilator
[2020-11-27 04:43] LABS: Albumin 1.8 G/DL (3.4-5.0); Bilirubin,Total 0.7 MG/DL (0.2-1.0); Osmolality,Calculated 320.3 MOS/KG (273-304); Total Protein 6.1 G/DL (6.4-8.3)
[2020-11-27] MEDS: INSULIN LISPRO 100 UNIT/ML SUBCUT SCH ×3 (06:22→18:27)
[2020-11-27] MEDS: ENOXAPARIN 100 MG/ML SYRINGE SUBCUT SCH ×2 (06:23→19:15)
[2020-11-27] MEDS: INSULIN GLARGINE 100 UNIT/ML SUBCUT SCH (08:27)
[2020-11-27] MEDS: TAMSULOSIN 0.4 MG CAPSULE PO SCH (08:27)
[2020-11-27] MEDS: CHOLECALCIFEROL 1,000 UNIT TABLET PO SCH (08:28)
[2020-11-27] MEDS: ASPIRIN EC 81 MG TABLET PO SCH (08:28)
[2020-11-27] MEDS: FAMOTIDINE 20 MG TABLET PO SCH ×2 (08:28→20:19)
[2020-11-27] MEDS: ZINC GLUCONATE 50 MG TABLET PO SCH (08:28)
[2020-11-27] MEDS: ASCORBIC ACID 500 MG TABLET PO SCH ×2 (08:28→20:20)
[2020-11-27] MEDS: AMIODARONE 200 MG TABLET PO SCH ×2 (08:29→20:20)
[2020-11-27] MEDS: MULTIVITAMIN LIQUID (CENTRUM) 60 ML BOTTLE PO SCH (08:31)
[2020-11-27] MEDS: FLUTICASONE 50 MCG NASAL SPRAY 16 GM BOTTLE BOTH NARES SCH ×2 (08:31→21:55)
[2020-11-27 09:03] LABS: Lymphocytes 2 % (20-55); Platelet Estimate Normal; Segmented Neutrophils 96 % (50-85); Total Cells Counted 100
[2020-11-27 09:04] LABS: Polychromasia Slight; Stomatocytes Few
[2020-11-27] MEDS: fentaNYL INJ 2,500 MCG in SODIUM CHLORIDE 0.9% 450 ML IV PRN (12:01)
[2020-11-27] MEDS: SODIUM CHLORIDE 0.9% 1,000 ML IV SCH (13:36)
[2020-11-27] MEDS: AZITHROMYCIN INJ 500 MG in SODIUM CHLORIDE 0.9% 250 ML IV SCH (14:55)
[2020-11-27] MEDS: SIMVASTATIN 20 MG TABLET PO SCH (20:19)
[2020-11-28] MEDS: INSULIN LISPRO 100 UNIT/ML SUBCUT SCH ×4 (00:52→18:19)
[2020-11-28] MEDS: fentaNYL INJ 2,500 MCG in SODIUM CHLORIDE 0.9% 450 ML IV PRN ×2 (01:31→12:25)
[2020-11-28 03:40] LABS: ABG HCO3 32.8 MMOL/L (20-26); ABG PCO2 59.2 MM HG (35-48); ABG PH 7.394 (7.35-7.45); ABG PO2 89.7 MM HG (80-95); ABG TCO2 32.2 MMOL/L (23-27); Allen Test Positive; Pt O2 Delivery Device Ventilator
[2020-11-28 03:52] LABS: Basophils % 0.2 % (0.0-0.8); Hematocrit 38.2 VOL% (42.0-52.0); Hemoglobin 11.4 GM/DL (14.0-18.0); Immature Granulocytes % 0.9 %; Immature Granulocytes Absolute 0.09 #; Lymphocytes # 0.3 10*3/uL (1.4-4.0); Lymphocytes % 3.1 % (21.2-54.2); Mean Corpuscular HGB Conc 29.8 GM/DL (32-36); Mean Corpuscular Volume 99.7 FL (87-102); Mean Platelet Volume 10.6 FL (9.6-12.0); Monocytes % 4.9 % (1.7-12.7); Neutrophils % 90.9 % (38.7-73.9); Platelet Count 164 T/CUMM (130-400); Red Blood Count 3.83 MC/CUMM (3.8-5.5); Red Cell Distribution Width 12.7 % (9.3-17.3); White Blood Count 10.5 T/CUMM (4-12)
[2020-11-28 03:57] LABS: Albumin 1.7 G/DL (3.4-5.0); Bilirubin,Total 0.4 MG/DL (0.2-1.0); Calcium 8.6 MG/DL (8.5-10.1); Osmolality,Calculated 316.6 MOS/KG (273-304); Potassium 5.1 MMOL/L (3.5-5.1); Total Protein 5.2 G/DL (6.4-8.3)
[2020-11-28] MEDS: ALBUTEROL INHALER 18 GM INH SCH ×6 (04:47→23:02)
[2020-11-28] MEDS: ENOXAPARIN 100 MG/ML SYRINGE SUBCUT SCH (05:05)
[2020-11-28 06:52] LABS: Anisocytosis Slight; Band Neutrophils 3 % (0-10); Lymphocytes 7 % (20-55); Platelet Estimate Normal; Segmented Neutrophils 87 % (50-85); Total Cells Counted 100
[2020-11-28] MEDS: SODIUM CHLORIDE 0.9% 1,000 ML IV SCH (07:05)
[2020-11-28] MEDS: ZINC GLUCONATE 50 MG TABLET PO SCH (08:05)
[2020-11-28] MEDS: AMIODARONE 200 MG TABLET PO SCH ×2 (08:05→20:54)
[2020-11-28] MEDS: TAMSULOSIN 0.4 MG CAPSULE PO SCH (08:05)
[2020-11-28] MEDS: MULTIVITAMIN LIQUID (CENTRUM) 60 ML BOTTLE PO SCH (08:05)
[2020-11-28] MEDS: CHOLECALCIFEROL 1,000 UNIT TABLET PO SCH (08:05)
[2020-11-28] MEDS: ASCORBIC ACID 500 MG TABLET PO SCH ×2 (08:05→20:54)
[2020-11-28] MEDS: ASPIRIN EC 81 MG TABLET PO SCH (08:05)
[2020-11-28] MEDS: FAMOTIDINE 20 MG TABLET PO SCH ×2 (08:05→20:54)
[2020-11-28] MEDS: methylPREDNISolone SOD SUC 40 MG/1 ML VIAL IV SCH ×2 (08:06→20:54)
[2020-11-28] MEDS: FLUTICASONE 50 MCG NASAL SPRAY 16 GM BOTTLE BOTH NARES SCH ×2 (08:07→20:55)
[2020-11-28] MEDS: INSULIN GLARGINE 100 UNIT/ML SUBCUT SCH (08:07)
[2020-11-28] MEDS: ALBUMIN 25% 25 GM in PREMIX 1 EACH IV SCH (14:22)
[2020-11-28] MEDS: FUROSEMIDE 40 MG/4 ML VIAL IV SCH ×2 (16:07→17:24)
[2020-11-28] MEDS: AZITHROMYCIN INJ 500 MG in SODIUM CHLORIDE 0.9% 250 ML IV SCH (16:08)
[2020-11-28] MEDS: MIDAZOLAM 100 MG in SODIUM CHLORIDE 0.9% 80 ML IV PRN (18:24)
[2020-11-28] MEDS: SIMVASTATIN 20 MG TABLET PO SCH (20:54)
[2020-11-29] MEDS: ALBUMIN 25% 25 GM in PREMIX 1 EACH IV SCH ×2 (01:01→12:44)
[2020-11-29] MEDS: INSULIN LISPRO 100 UNIT/ML SUBCUT SCH ×4 (01:01→17:52)
[2020-11-29 04:12] LABS: ABG Base Excess 10.7 MMOL/L (-2.5-2.5); ABG HCO3 34.5 MMOL/L (20-26); ABG Oxygen Saturation 99.6 % (95-100); ABG PCO2 60.9 MM HG (35-48); ABG PH 7.399 (7.35-7.45); ABG TCO2 34.4 MMOL/L (23-27); Allen Test Positive; Pt O2 Delivery Device Ventilator
[2020-11-29] MEDS: ALBUTEROL INHALER 18 GM INH SCH ×5 (04:37→18:30)
[2020-11-29 04:52] LABS: Basophils % 0.1 % (0.0-0.8); Hematocrit 28.5 VOL% (42.0-52.0); Hemoglobin 9.1 GM/DL (14.0-18.0); Immature Granulocytes % 2.8 %; Immature Granulocytes Absolute 0.29 #; Lymphocytes # 0.3 10*3/uL (1.4-4.0); Mean Corpuscular HGB Conc 31.9 GM/DL (32-36); Mean Corpuscular Volume 93.8 FL (87-102); Mean Platelet Volume 10.4 FL (9.6-12.0); Monocytes % 4.6 % (1.7-12.7); Neutrophils % 89.5 % (38.7-73.9); Platelet Count 178 T/CUMM (130-400); Red Blood Count 3.04 MC/CUMM (3.8-5.5); Red Cell Distribution Width 12.7 % (9.3-17.3); White Blood Count 10.2 T/CUMM (4-12)
[2020-11-29 05:14] LABS: Hypochromasia 1+; Lymphocytes 3 % (20-55); Microcytosis 1+; Platelet Estimate Adequate; Segmented Neutrophils 95 % (50-85); Total Cells Counted 100
[2020-11-29 05:21] LABS: Albumin 2.4 G/DL (3.4-5.0); Bilirubin,Total 0.4 MG/DL (0.2-1.0); Calcium 8.4 MG/DL (8.5-10.1); Ferritin 448.4 ng/ml (26-388); Osmolality,Calculated 308.6 MOS/KG (273-304); Potassium 4.9 MMOL/L (3.5-5.1)
[2020-11-29] MEDS: methylPREDNISolone SOD SUC 40 MG/1 ML VIAL IV SCH ×2 (09:01→20:58)
[2020-11-29] MEDS: MULTIVITAMIN LIQUID (CENTRUM) 60 ML BOTTLE PO SCH (09:02)
[2020-11-29] MEDS: FUROSEMIDE 40 MG/4 ML VIAL IV SCH ×2 (09:03→16:12)
[2020-11-29] MEDS: TAMSULOSIN 0.4 MG CAPSULE PO SCH (09:03)
[2020-11-29] MEDS: FAMOTIDINE 20 MG TABLET PO SCH ×2 (09:04→20:59)
[2020-11-29] MEDS: CHOLECALCIFEROL 1,000 UNIT TABLET PO SCH (09:05)
[2020-11-29] MEDS: ASCORBIC ACID 500 MG TABLET PO SCH ×2 (09:05→20:59)
[2020-11-29] MEDS: FLUTICASONE 50 MCG NASAL SPRAY 16 GM BOTTLE BOTH NARES SCH ×2 (09:06→21:00)
[2020-11-29] MEDS: ZINC GLUCONATE 50 MG TABLET PO SCH (09:06)
[2020-11-29] MEDS: ASPIRIN EC 81 MG TABLET PO SCH (09:06)
[2020-11-29] MEDS: INSULIN GLARGINE 100 UNIT/ML SUBCUT SCH (09:07)
[2020-11-29] MEDS: AMIODARONE 200 MG TABLET PO SCH ×2 (09:08→20:59)
[2020-11-29] MEDS: fentaNYL INJ 2,500 MCG in SODIUM CHLORIDE 0.9% 450 ML IV PRN ×2 (13:21)
[2020-11-29] MEDS: MIDAZOLAM 100 MG in SODIUM CHLORIDE 0.9% 80 ML IV PRN (14:58)
[2020-11-29] MEDS: AZITHROMYCIN INJ 500 MG in SODIUM CHLORIDE 0.9% 250 ML IV SCH (15:40)
[2020-11-29] MEDS: SIMVASTATIN 20 MG TABLET PO SCH (20:59)
[2020-11-30] MEDS: INSULIN LISPRO 100 UNIT/ML SUBCUT SCH ×5 (00:49→23:19)
[2020-11-30] MEDS: ALBUTEROL INHALER 18 GM INH SCH ×6 (00:59→18:01)
[2020-11-30] MEDS: ALBUMIN 25% 25 GM in PREMIX 1 EACH IV SCH ×2 (02:00→13:44)
[2020-11-30 03:18] LABS: ABG Base Excess 14.2 MMOL/L (-2.5-2.5); ABG HCO3 38.1 MMOL/L (20-26); ABG PCO2 59.7 MM HG (35-48); ABG PH 7.443 (7.35-7.45); ABG TCO2 37.3 MMOL/L (23-27); Allen Test Positive; Pt O2 Delivery Device Ventilator
[2020-11-30 03:51] LABS: Basophils % 0.1 % (0.0-0.8); Eosinophils % 0.1 % (0.00-10.9); Hematocrit 26.8 VOL% (42.0-52.0); Hemoglobin 8.7 GM/DL (14.0-18.0); Immature Granulocytes % 2.9 %; Immature Granulocytes Absolute 0.34 #; Lymphocytes # 0.3 10*3/uL (1.4-4.0); Lymphocytes % 2.7 % (21.2-54.2); Mean Corpuscular HGB Conc 32.5 GM/DL (32-36); Mean Corpuscular Volume 91.8 FL (87-102); Mean Platelet Volume 10.5 FL (9.6-12.0); Monocytes % 4.9 % (1.7-12.7); Neutrophils % 89.3 % (38.7-73.9); Platelet Count 169 T/CUMM (130-400); Red Blood Count 2.92 MC/CUMM (3.8-5.5); Red Cell Distribution Width 12.7 % (9.3-17.3); White Blood Count 11.8 T/CUMM (4-12)
[2020-11-30 04:14] LABS: Calcium 8.5 MG/DL (8.5-10.1); Osmolality,Calculated 299.4 MOS/KG (273-304); Potassium 4.4 MMOL/L (3.5-5.1)
[2020-11-30 04:36] LABS: Hypochromasia 2+; Lymphocytes 4 % (20-55); Microcytosis 1+; Ovalocytes Slight; Platelet Estimate Adequate; Segmented Neutrophils 93 % (50-85); Total Cells Counted 100
[2020-11-30] MEDS: fentaNYL INJ 2,500 MCG in SODIUM CHLORIDE 0.9% 450 ML IV PRN ×2 (06:00→20:57)
[2020-11-30] MEDS: SODIUM CHLORIDE 0.9% 1,000 ML IV SCH ×2 (06:14→23:16)
[2020-11-30] MEDS: methylPREDNISolone SOD SUC 40 MG/1 ML VIAL IV SCH ×2 (08:01→21:08)
[2020-11-30] MEDS: AMIODARONE 200 MG TABLET PO SCH ×2 (08:02→21:09)
[2020-11-30] MEDS: CHOLECALCIFEROL 1,000 UNIT TABLET PO SCH (08:02)
[2020-11-30] MEDS: ASCORBIC ACID 500 MG TABLET PO SCH ×2 (08:02→21:09)
[2020-11-30] MEDS: ZINC GLUCONATE 50 MG TABLET PO SCH (08:02)
[2020-11-30] MEDS: ASPIRIN EC 81 MG TABLET PO SCH (08:02)
[2020-11-30] MEDS: FAMOTIDINE 20 MG TABLET PO SCH ×2 (08:02→21:09)
[2020-11-30] MEDS: TAMSULOSIN 0.4 MG CAPSULE PO SCH (08:02)
[2020-11-30] MEDS: MULTIVITAMIN LIQUID (CENTRUM) 60 ML BOTTLE PO SCH (08:03)
[2020-11-30] MEDS: INSULIN GLARGINE 100 UNIT/ML SUBCUT SCH (08:05)
[2020-11-30] MEDS: FLUTICASONE 50 MCG NASAL SPRAY 16 GM BOTTLE BOTH NARES SCH ×2 (09:15→21:10)
[2020-11-30] MEDS: FUROSEMIDE 40 MG/4 ML VIAL IV SCH ×2 (09:45→17:11)
[2020-11-30] MEDS: MIDAZOLAM 100 MG in SODIUM CHLORIDE 0.9% 80 ML IV PRN (11:43)
[2020-11-30] MEDS: AZITHROMYCIN INJ 500 MG in SODIUM CHLORIDE 0.9% 250 ML IV SCH (15:24)
[2020-11-30] MEDS: ENOXAPARIN 40 MG/0.4 ML SYRINGE SUBCUT SCH (17:22)
[2020-11-30] MEDS: SIMVASTATIN 20 MG TABLET PO SCH (21:14)
[2020-12-01] MEDS: ALBUTEROL INHALER 18 GM INH SCH ×6 (00:09→18:22)
[2020-12-01] MEDS: ALBUMIN 25% 25 GM in PREMIX 1 EACH IV SCH (00:10)
[2020-12-01] MEDS ORDERED: LORazepam 2 MG/1 ML VIAL ONE (02:25)
[2020-12-01] MEDS: LORazepam 2 MG/1 ML VIAL IV PRN ×3 (02:27→16:55)
[2020-12-01 04:13] LABS: ABG Base Excess 13.1 MMOL/L (-2.5-2.5); ABG HCO3 38.7 MMOL/L (20-26); ABG Oxygen Saturation 92.6 % (95-100); ABG PCO2 56.9 MM HG (35-48); ABG PH 7.451 (7.35-7.45); ABG PO2 66.7 MM HG (80-95); ABG TCO2 40.5 MMOL/L (23-27); Allen Test Positive; Pt O2 Delivery Device Ventilator
[2020-12-01] MEDS: MIDAZOLAM 100 MG in SODIUM CHLORIDE 0.9% 80 ML IV PRN ×2 (04:25→21:10)
[2020-12-01 04:44] LABS: Basophils % 0.1 % (0.0-0.8); Hematocrit 24.8 VOL% (42.0-52.0); Hemoglobin 7.8 GM/DL (14.0-18.0); Immature Granulocytes % 2.3 %; Immature Granulocytes Absolute 0.24 #; Lymphocytes # 0.2 10*3/uL (1.4-4.0); Lymphocytes % 1.8 % (21.2-54.2); Mean Corpuscular HGB Conc 31.5 GM/DL (32-36); Mean Corpuscular Volume 94.7 FL (87-102); Mean Platelet Volume 10.7 FL (9.6-12.0); Monocytes % 3.4 % (1.7-12.7); Neutrophils % 92.4 % (38.7-73.9); Platelet Count 156 T/CUMM (130-400); Red Blood Count 2.62 MC/CUMM (3.8-5.5); Red Cell Distribution Width 12.7 % (9.3-17.3); White Blood Count 10.3 T/CUMM (4-12)
[2020-12-01 05:05] LABS: Calcium 8.5 MG/DL (8.5-10.1); Osmolality,Calculated 298.4 MOS/KG (273-304)
[2020-12-01 05:07] LABS: Band Neutrophils 2 % (0-10); Hypochromasia 1+; Lymphocytes 2 % (20-55); Microcytosis 1+; Platelet Estimate Adequate; Segmented Neutrophils 95 % (50-85); Total Cells Counted 100
[2020-12-01] MEDS: INSULIN LISPRO 100 UNIT/ML SUBCUT SCH ×3 (05:48→17:00)
[2020-12-01] MEDS: ASPIRIN EC 81 MG TABLET PO SCH (08:24)
[2020-12-01] MEDS: AMIODARONE 200 MG TABLET PO SCH ×2 (08:24→21:53)
[2020-12-01] MEDS: CHOLECALCIFEROL 1,000 UNIT TABLET PO SCH (08:24)
[2020-12-01] MEDS: ASCORBIC ACID 500 MG TABLET PO SCH ×2 (08:24→21:53)
[2020-12-01] MEDS: FAMOTIDINE 20 MG TABLET PO SCH ×2 (08:24→21:53)
[2020-12-01] MEDS: ZINC GLUCONATE 50 MG TABLET PO SCH (08:24)
[2020-12-01] MEDS: TAMSULOSIN 0.4 MG CAPSULE PO SCH (08:24)
[2020-12-01] MEDS: INSULIN GLARGINE 100 UNIT/ML SUBCUT SCH (08:25)
[2020-12-01] MEDS: FLUTICASONE 50 MCG NASAL SPRAY 16 GM BOTTLE BOTH NARES SCH ×2 (08:26→21:54)
[2020-12-01] MEDS: methylPREDNISolone SOD SUC 40 MG/1 ML VIAL IV SCH ×2 (08:28→21:52)
[2020-12-01] MEDS: MULTIVITAMIN LIQUID (CENTRUM) 60 ML BOTTLE PO SCH (09:23)
[2020-12-01] MEDS: FUROSEMIDE 40 MG/4 ML VIAL IV SCH ×2 (09:51→15:19)
[2020-12-01] MEDS: fentaNYL INJ 2,500 MCG in SODIUM CHLORIDE 0.9% 450 ML IV PRN ×2 (10:09→23:46)
[2020-12-01] MEDS: AZITHROMYCIN INJ 500 MG in SODIUM CHLORIDE 0.9% 250 ML IV SCH (15:18)
[2020-12-01] MEDS: ALPRAZolam 0.25 MG TABLET PO PRN ×2 (16:34→21:53)
[2020-12-01] MEDS: ENOXAPARIN 40 MG/0.4 ML SYRINGE SUBCUT SCH (17:00)
[2020-12-01] MEDS: SODIUM CHLORIDE 0.9% 1,000 ML IV SCH (18:12)
[2020-12-01] MEDS: PHENYLEPHRINE DRIP 40 MG/250 ML PREMIX IV PRN (21:51)
[2020-12-01] MEDS: SIMVASTATIN 20 MG TABLET PO SCH (21:53)
[2020-12-02] MEDS: ALBUTEROL INHALER 18 GM INH SCH ×7 (00:13→23:06)
[2020-12-02] MEDS: INSULIN LISPRO 100 UNIT/ML SUBCUT SCH ×5 (00:59→23:37)
[2020-12-02 04:27] LABS: Allen Test Positive; Pt O2 Delivery Device Ventilator
[2020-12-02 04:29] LABS: ABG Base Excess 13.7 MMOL/L (-2.5-2.5); ABG HCO3 37.6 MMOL/L (20-26); ABG Oxygen Saturation 97.1 % (95-100); ABG PCO2 56.9 MM HG (35-48); ABG PH 7.455 (7.35-7.45); ABG PO2 86.5 MM HG (80-95); ABG TCO2 36.5 MMOL/L (23-27)
[2020-12-02 04:49] LABS: Basophils # 0.1 10*3/uL (0.0-0.2); Basophils % 0.3 % (0.0-0.8); Eosinophils % 0.1 % (0.00-10.9); Hematocrit 29.4 VOL% (42.0-52.0); Hemoglobin 9.5 GM/DL (14.0-18.0); Immature Granulocytes % 4.2 %; Immature Granulocytes Absolute 0.77 #; Lymphocytes # 0.4 10*3/uL (1.4-4.0); Lymphocytes % 2.4 % (21.2-54.2); Mean Corpuscular HGB Conc 32.3 GM/DL (32-36); Mean Corpuscular Volume 91.6 FL (87-102); Monocytes % 3.9 % (1.7-12.7); Neutrophils % 89.1 % (38.7-73.9); Platelet Count 266 T/CUMM (130-400); Red Blood Count 3.21 MC/CUMM (3.8-5.5); Red Cell Distribution Width 13.1 % (9.3-17.3); White Blood Count 18.3 T/CUMM (4-12)
[2020-12-02 05:16] LABS: Hypochromasia 1+; Lymphocytes 3 % (20-55); Microcytosis 1+; Platelet Estimate Adequate; Segmented Neutrophils 94 % (50-85); Total Cells Counted 100
[2020-12-02 05:20] LABS: Calcium 8.5 MG/DL (8.5-10.1); Osmolality,Calculated 288.7 MOS/KG (273-304); Potassium 4.4 MMOL/L (3.5-5.1)
[2020-12-02] MEDS: ASPIRIN EC 81 MG TABLET PO SCH (08:18)
[2020-12-02] MEDS: AMIODARONE 200 MG TABLET PO SCH ×2 (08:18→21:19)
[2020-12-02] MEDS: TAMSULOSIN 0.4 MG CAPSULE PO SCH (08:18)
[2020-12-02] MEDS: FUROSEMIDE 40 MG/4 ML VIAL IV SCH (08:18)
[2020-12-02] MEDS: CHOLECALCIFEROL 1,000 UNIT TABLET PO SCH (08:18)
[2020-12-02] MEDS: ASCORBIC ACID 500 MG TABLET PO SCH ×2 (08:18→21:19)
[2020-12-02] MEDS: ALPRAZolam 0.25 MG TABLET PO PRN ×2 (08:18→21:18)
[2020-12-02] MEDS: ZINC GLUCONATE 50 MG TABLET PO SCH (08:18)
[2020-12-02] MEDS: INSULIN GLARGINE 100 UNIT/ML SUBCUT SCH (08:19)
[2020-12-02] MEDS: FLUTICASONE 50 MCG NASAL SPRAY 16 GM BOTTLE BOTH NARES SCH ×2 (08:19→21:19)
[2020-12-02] MEDS: methylPREDNISolone SOD SUC 40 MG/1 ML VIAL IV SCH ×2 (08:23→21:18)
[2020-12-02] MEDS: FAMOTIDINE 20 MG TABLET PO SCH ×2 (08:23→21:19)
[2020-12-02] MEDS: MULTIVITAMIN LIQUID (CENTRUM) 60 ML BOTTLE PO SCH (09:57)
[2020-12-02] MEDS: fentaNYL INJ 2,500 MCG in SODIUM CHLORIDE 0.9% 450 ML IV PRN (10:54)
[2020-12-02] MEDS: MIDAZOLAM 100 MG in SODIUM CHLORIDE 0.9% 80 ML IV PRN ×2 (11:04→23:07)
[2020-12-02] MEDS: PHENYLEPHRINE DRIP 40 MG/250 ML PREMIX IV PRN (13:38)
[2020-12-02] MEDS: AZITHROMYCIN INJ 500 MG in SODIUM CHLORIDE 0.9% 250 ML IV SCH (15:16)
[2020-12-02] MEDS: ENOXAPARIN 40 MG/0.4 ML SYRINGE SUBCUT SCH (17:32)
[2020-12-02] MEDS: LORazepam 2 MG/1 ML VIAL IV PRN (19:39)
[2020-12-02] MEDS: SIMVASTATIN 20 MG TABLET PO SCH (21:19)
[2020-12-03] MEDS: fentaNYL INJ 2,500 MCG in SODIUM CHLORIDE 0.9% 450 ML IV PRN ×3 (00:53→23:12)
[2020-12-03] MEDS: ALBUTEROL INHALER 18 GM INH SCH ×4 (02:44→15:40)
[2020-12-03 04:19] LABS: Allen Test Positive; Pt O2 Delivery Device Ventilator
[2020-12-03 04:20] LABS: ABG Base Excess 7.7 MMOL/L (-2.5-2.5); ABG HCO3 34.2 MMOL/L (20-26); ABG Oxygen Saturation 98.7 % (95-100); ABG PCO2 59.2 MM HG (35-48); ABG PO2 229.8 MM HG (80-95); ABG TCO2 36.1 MMOL/L (23-27)
[2020-12-03 04:56] LABS: Basophils # 0.1 10*3/uL (0.0-0.2); Basophils % 0.2 % (0.0-0.8); Hematocrit 32.9 VOL% (42.0-52.0); Hemoglobin 10.1 GM/DL (14.0-18.0); Immature Granulocytes % 4.4 %; Immature Granulocytes Absolute 0.95 #; Lymphocytes # 0.5 10*3/uL (1.4-4.0); Lymphocytes % 2.4 % (21.2-54.2); Mean Corpuscular HGB Conc 30.7 GM/DL (32-36); Mean Corpuscular Volume 97.3 FL (87-102); Mean Platelet Volume 10.5 FL (9.6-12.0); Monocytes % 4.7 % (1.7-12.7); Neutrophils % 88.3 % (38.7-73.9); Platelet Count 281 T/CUMM (130-400); Red Blood Count 3.38 MC/CUMM (3.8-5.5); Red Cell Distribution Width 13.8 % (9.3-17.3); White Blood Count 21.4 T/CUMM (4-12)
[2020-12-03] MEDS: SODIUM CHLORIDE 0.9% 1,000 ML IV SCH (05:05)
[2020-12-03 05:33] LABS: Calcium 8.7 MG/DL (8.5-10.1); Osmolality,Calculated 294.4 MOS/KG (273-304); Potassium 4.9 MMOL/L (3.5-5.1)
[2020-12-03 05:34] LABS: Hypochromasia 1+; Lymphocytes 2 % (20-55); Microcytosis 1+; Ovalocytes Slight; Platelet Estimate Adequate; Segmented Neutrophils 96 % (50-85); Total Cells Counted 100
[2020-12-03] MEDS: INSULIN LISPRO 100 UNIT/ML SUBCUT SCH ×3 (06:08→17:32)
[2020-12-03] MEDS: ASCORBIC ACID 500 MG TABLET PO SCH ×2 (08:32→21:40)
[2020-12-03] MEDS: CHOLECALCIFEROL 1,000 UNIT TABLET PO SCH (08:32)
[2020-12-03] MEDS: ASPIRIN CHEW 81 MG TABLET PO SCH (08:32)
[2020-12-03] MEDS: AMIODARONE 200 MG TABLET PO SCH ×2 (08:32→21:40)
[2020-12-03] MEDS: FAMOTIDINE 20 MG TABLET PO SCH ×2 (08:32→21:40)
[2020-12-03] MEDS: ZINC GLUCONATE 50 MG TABLET PO SCH (08:32)
[2020-12-03] MEDS: TAMSULOSIN 0.4 MG CAPSULE PO SCH (08:32)
[2020-12-03] MEDS: INSULIN GLARGINE 100 UNIT/ML SUBCUT SCH (08:33)
[2020-12-03] MEDS: FUROSEMIDE 40 MG/4 ML VIAL IV SCH (08:34)
[2020-12-03] MEDS: MULTIVITAMIN LIQUID (CENTRUM) 60 ML BOTTLE PO SCH (08:44)
[2020-12-03] MEDS: FLUTICASONE 50 MCG NASAL SPRAY 16 GM BOTTLE BOTH NARES SCH ×2 (08:45→21:42)
[2020-12-03] MEDS: methylPREDNISolone SOD SUC 40 MG/1 ML VIAL IV SCH ×2 (08:47→21:41)
[2020-12-03] MEDS: PHENYLEPHRINE DRIP 40 MG/250 ML PREMIX IV PRN (10:55)
[2020-12-03] MEDS: MIDAZOLAM 100 MG in SODIUM CHLORIDE 0.9% 80 ML IV PRN (12:11)
[2020-12-03] MEDS: AZITHROMYCIN INJ 500 MG in SODIUM CHLORIDE 0.9% 250 ML IV SCH (15:40)
[2020-12-03] MEDS: ENOXAPARIN 40 MG/0.4 ML SYRINGE SUBCUT SCH (17:33)
[2020-12-03] MEDS: SIMVASTATIN 20 MG TABLET PO SCH (21:40)
[2020-12-04] MEDS: INSULIN LISPRO 100 UNIT/ML SUBCUT SCH ×4 (00:35→18:50)
[2020-12-04] MEDS: ALBUTEROL INHALER 18 GM INH SCH ×7 (00:35→19:03)
[2020-12-04] MEDS: MIDAZOLAM 100 MG in SODIUM CHLORIDE 0.9% 80 ML IV PRN ×2 (02:41→16:22)
[2020-12-04 03:39] LABS: ABG Base Excess 5.5 MMOL/L (-2.5-2.5); ABG HCO3 29.4 MMOL/L (20-26); ABG Oxygen Saturation 97.8 % (95-100); ABG PCO2 66.5 MM HG (35-48)
[2020-12-04 04:27] LABS: Basophils % 0.1 % (0.0-0.8); Hematocrit 29.3 VOL% (42.0-52.0); Hemoglobin 9.2 GM/DL (14.0-18.0); Immature Granulocytes % 2.9 %; Immature Granulocytes Absolute 0.66 #; Lymphocytes # 0.3 10*3/uL (1.4-4.0); Lymphocytes % 1.2 % (21.2-54.2); Mean Corpuscular HGB Conc 31.4 GM/DL (32-36); Mean Corpuscular Volume 95.1 FL (87-102); Mean Platelet Volume 10.5 FL (9.6-12.0); Monocytes % 3.5 % (1.7-12.7); Neutrophils % 92.3 % (38.7-73.9); Platelet Count 257 T/CUMM (130-400); Red Blood Count 3.08 MC/CUMM (3.8-5.5); White Blood Count 23.1 T/CUMM (4-12)
[2020-12-04 04:50] LABS: Calcium 8.3 MG/DL (8.5-10.1); Osmolality,Calculated 300.3 MOS/KG (273-304); Potassium 4.7 MMOL/L (3.5-5.1)
[2020-12-04 05:02] LABS: Band Neutrophils 1 % (0-10); Lymphocytes 3 % (20-55); Segmented Neutrophils 91 % (50-85); Total Cells Counted 100
[2020-12-04 05:03] LABS: Hypochromasia 1+; Platelet Estimate Normal
[2020-12-04] MEDS: fentaNYL INJ 2,500 MCG in SODIUM CHLORIDE 0.9% 450 ML IV PRN ×2 (07:01→18:48)
[2020-12-04] MEDS: CHOLECALCIFEROL 1,000 UNIT TABLET PO SCH (08:46)
[2020-12-04] MEDS: ZINC GLUCONATE 50 MG TABLET PO SCH (08:46)
[2020-12-04] MEDS: LEVOFLOXACIN 750 MG TABLET PO SCH (08:46)
[2020-12-04] MEDS: TAMSULOSIN 0.4 MG CAPSULE PO SCH (08:47)
[2020-12-04] MEDS: FAMOTIDINE 20 MG TABLET PO SCH ×2 (08:47→21:20)
[2020-12-04] MEDS: AMIODARONE 200 MG TABLET PO SCH ×2 (08:47→21:14)
[2020-12-04] MEDS: ASCORBIC ACID 500 MG TABLET PO SCH ×2 (08:48→21:18)
[2020-12-04] MEDS: INSULIN GLARGINE 100 UNIT/ML SUBCUT SCH (08:49)
[2020-12-04] MEDS: ASPIRIN CHEW 81 MG TABLET PO SCH (08:49)
[2020-12-04] MEDS: methylPREDNISolone SOD SUC 40 MG/1 ML VIAL IV SCH ×2 (08:51→21:17)
[2020-12-04] MEDS: FUROSEMIDE 40 MG/4 ML VIAL IV SCH (08:53)
[2020-12-04] MEDS: MULTIVITAMIN LIQUID (CENTRUM) 60 ML BOTTLE PO SCH (08:55)
[2020-12-04] MEDS: FLUTICASONE 50 MCG NASAL SPRAY 16 GM BOTTLE BOTH NARES SCH ×2 (08:59→21:19)
[2020-12-04] MEDS: LACTULOSE 20 GM/30 ML UDCUP PO PRN (16:37)
[2020-12-04] MEDS: ENOXAPARIN 40 MG/0.4 ML SYRINGE SUBCUT SCH (19:02)
[2020-12-04] MEDS: LACTULOSE 20 GM/30 ML UDCUP PO SCH (21:14)
[2020-12-04] MEDS: SIMVASTATIN 20 MG TABLET PO SCH (21:14)
[2020-12-05] MEDS: INSULIN LISPRO 100 UNIT/ML SUBCUT SCH ×4 (00:58→18:34)
[2020-12-05] MEDS: LACTULOSE 20 GM/30 ML UDCUP PO SCH ×2 (01:08→05:37)
[2020-12-05] MEDS: ALBUTEROL INHALER 18 GM INH SCH ×7 (01:09→23:09)
[2020-12-05 04:11] LABS: Basophils % 0.1 % (0.0-0.8); Hemoglobin 9.7 GM/DL (14.0-18.0); Immature Granulocytes Absolute 0.37 #; Lymphocytes # 0.3 10*3/uL (1.4-4.0); Lymphocytes % 1.4 % (21.2-54.2); Mean Corpuscular HGB Conc 31.3 GM/DL (32-36); Mean Corpuscular Volume 94.8 FL (87-102); Mean Platelet Volume 10.2 FL (9.6-12.0); Neutrophils % 92.5 % (38.7-73.9); Platelet Count 234 T/CUMM (130-400); Red Blood Count 3.27 MC/CUMM (3.8-5.5); White Blood Count 18.2 T/CUMM (4-12)
[2020-12-05 04:12] LABS: ABG Base Excess 6.7 MMOL/L (-2.5-2.5); ABG HCO3 30.5 MMOL/L (20-26); ABG Oxygen Saturation 94.1 % (95-100); ABG PCO2 55.9 MM HG (35-48); ABG PH 7.382 (7.35-7.45); ABG PO2 68.5 MM HG (80-95); ABG TCO2 30.4 MMOL/L (23-27)
[2020-12-05 04:34] LABS: Hypochromasia Slight; Lymphocytes 3 % (20-55); Platelet Estimate Normal; Segmented Neutrophils 93 % (50-85); Total Cells Counted 100
[2020-12-05 04:36] LABS: Calcium 8.7 MG/DL (8.5-10.1); Osmolality,Calculated 295.4 MOS/KG (273-304); Potassium 4.1 MMOL/L (3.5-5.1)
[2020-12-05] MEDS: fentaNYL INJ 2,500 MCG in SODIUM CHLORIDE 0.9% 450 ML IV PRN (08:06)
[2020-12-05] MEDS: MIDAZOLAM 100 MG in SODIUM CHLORIDE 0.9% 80 ML IV PRN (08:07)
[2020-12-05] MEDS: CHOLECALCIFEROL 1,000 UNIT TABLET PO SCH (10:21)
[2020-12-05] MEDS: TAMSULOSIN 0.4 MG CAPSULE PO SCH (10:21)
[2020-12-05] MEDS: LEVOFLOXACIN 750 MG TABLET PO SCH (10:21)
[2020-12-05] MEDS: ZINC GLUCONATE 50 MG TABLET PO SCH (10:21)
[2020-12-05] MEDS: FAMOTIDINE 20 MG TABLET PO SCH ×2 (10:22→21:50)
[2020-12-05] MEDS: ASCORBIC ACID 500 MG TABLET PO SCH ×2 (10:22→21:49)
[2020-12-05] MEDS: ASPIRIN CHEW 81 MG TABLET PO SCH (10:23)
[2020-12-05] MEDS: AMIODARONE 200 MG TABLET PO SCH (10:23)
[2020-12-05] MEDS: INSULIN GLARGINE 100 UNIT/ML SUBCUT SCH (10:23)
[2020-12-05] MEDS: methylPREDNISolone SOD SUC 40 MG/1 ML VIAL IV SCH ×2 (10:25→21:49)
[2020-12-05] MEDS: MULTIVITAMIN LIQUID (CENTRUM) 60 ML BOTTLE PO SCH (10:26)
[2020-12-05] MEDS: FLUTICASONE 50 MCG NASAL SPRAY 16 GM BOTTLE BOTH NARES SCH ×2 (10:26→22:05)
[2020-12-05] MEDS: FUROSEMIDE 40 MG/4 ML VIAL IV SCH (13:44)
[2020-12-05] MEDS: LORazepam 2 MG/1 ML VIAL IV PRN (13:46)
[2020-12-05] MEDS: ENOXAPARIN 40 MG/0.4 ML SYRINGE SUBCUT SCH (18:38)
[2020-12-05] MEDS: SIMVASTATIN 20 MG TABLET PO SCH (21:50)
[2020-12-06] MEDS: fentaNYL INJ 2,500 MCG in SODIUM CHLORIDE 0.9% 450 ML IV PRN ×2 (00:52→16:40)
[2020-12-06] MEDS: INSULIN LISPRO 100 UNIT/ML SUBCUT SCH ×4 (00:54→18:35)
[2020-12-06] MEDS: AMIODARONE 200 MG TABLET PO SCH ×3 (00:55→20:30)
[2020-12-06] MEDS: ALBUTEROL INHALER 18 GM INH SCH ×6 (04:10→23:19)
[2020-12-06] MEDS: MIDAZOLAM 100 MG in SODIUM CHLORIDE 0.9% 80 ML IV PRN (04:10)
[2020-12-06 04:23] LABS: ABG Base Excess 8.1 MMOL/L (-2.5-2.5); ABG HCO3 31.8 MMOL/L (20-26); ABG Oxygen Saturation 91.2 % (95-100); ABG PCO2 50.5 MM HG (35-48); ABG PH 7.433 (7.35-7.45); ABG TCO2 30.6 MMOL/L (23-27)
[2020-12-06] MEDS ORDERED: LORazepam 2 MG/1 ML VIAL ONE ×2 (04:46→22:12)
[2020-12-06] MEDS: LORazepam 2 MG/1 ML VIAL IV PRN ×3 (04:51→22:16)
[2020-12-06 05:20] LABS: Calcium 8.9 MG/DL (8.5-10.1); Osmolality,Calculated 299.1 MOS/KG (273-304); Potassium 3.7 MMOL/L (3.5-5.1)
[2020-12-06] MEDS: FUROSEMIDE 40 MG/4 ML VIAL IV SCH (08:35)
[2020-12-06] MEDS: MULTIVITAMIN LIQUID (CENTRUM) 60 ML BOTTLE PO SCH (08:35)
[2020-12-06] MEDS: methylPREDNISolone SOD SUC 40 MG/1 ML VIAL IV SCH ×2 (08:36→20:31)
[2020-12-06] MEDS: INSULIN GLARGINE 100 UNIT/ML SUBCUT SCH (08:36)
[2020-12-06] MEDS: LEVOFLOXACIN 750 MG TABLET PO SCH (08:37)
[2020-12-06] MEDS: POTASSIUM CHLORIDE 20 MEQ TABLET PO PRN (08:38)
[2020-12-06] MEDS: ASCORBIC ACID 500 MG TABLET PO SCH ×2 (08:38→20:31)
[2020-12-06] MEDS: CHOLECALCIFEROL 1,000 UNIT TABLET PO SCH (08:38)
[2020-12-06] MEDS: FAMOTIDINE 20 MG TABLET PO SCH ×2 (08:38→20:30)
[2020-12-06] MEDS: ZINC GLUCONATE 50 MG TABLET PO SCH (08:38)
[2020-12-06] MEDS: ASPIRIN CHEW 81 MG TABLET PO SCH (08:39)
[2020-12-06] MEDS: TAMSULOSIN 0.4 MG CAPSULE PO SCH (08:39)
[2020-12-06] MEDS: FLUTICASONE 50 MCG NASAL SPRAY 16 GM BOTTLE BOTH NARES SCH ×2 (08:40→23:19)
[2020-12-06] MEDS: ENOXAPARIN 40 MG/0.4 ML SYRINGE SUBCUT SCH (18:35)
[2020-12-06] MEDS: PHENYLEPHRINE DRIP 40 MG/250 ML PREMIX IV PRN (20:27)
[2020-12-06] MEDS: SIMVASTATIN 20 MG TABLET PO SCH (20:31)
[2020-12-06 23:43] LABS: ABG Base Excess 8.5 MMOL/L (-2.5-2.5); ABG HCO3 32.3 MMOL/L (20-26); ABG Oxygen Saturation 95.6 % (95-100); ABG PCO2 49.8 MM HG (35-48); ABG PH 7.441 (7.35-7.45); ABG PO2 74.7 MM HG (80-95); ABG TCO2 31.2 MMOL/L (23-27); Allen Test Positive; Pt O2 Delivery Device Ventilator
[2020-12-07] MEDS: INSULIN LISPRO 100 UNIT/ML SUBCUT SCH ×4 (00:52→18:36)
[2020-12-07] MEDS: ALBUTEROL/IPRATROPIUM 3 ML NEB RESP TX SCH ×5 (03:08→19:38)
[2020-12-07] MEDS: fentaNYL INJ 2,500 MCG in SODIUM CHLORIDE 0.9% 450 ML IV PRN (04:20)
[2020-12-07 04:35] LABS: Basophils % 0.2 % (0.0-0.8); Hematocrit 28.8 VOL% (42.0-52.0); Hemoglobin 8.9 GM/DL (14.0-18.0); Immature Granulocytes % 2.9 %; Immature Granulocytes Absolute 0.52 #; Lymphocytes # 0.4 10*3/uL (1.4-4.0); Lymphocytes % 2.1 % (21.2-54.2); Mean Corpuscular HGB Conc 30.9 GM/DL (32-36); Mean Platelet Volume 10.2 FL (9.6-12.0); Monocytes % 3.4 % (1.7-12.7); Neutrophils % 91.4 % (38.7-73.9); Platelet Count 264 T/CUMM (130-400); Red Blood Count 3.03 MC/CUMM (3.8-5.5); Red Cell Distribution Width 14.9 % (9.3-17.3)
[2020-12-07 04:53] LABS: Lymphocytes 4 % (20-55); Platelet Estimate Adequate; Segmented Neutrophils 93 % (50-85); Total Cells Counted 100
[2020-12-07 04:54] LABS: Hypochromasia 1+; Microcytosis 1+
[2020-12-07 04:58] LABS: Albumin 2.1 G/DL (3.4-5.0); Bilirubin,Total 0.7 MG/DL (0.2-1.0); Calcium 8.4 MG/DL (8.5-10.1); Osmolality,Calculated 304.1 MOS/KG (273-304); Potassium 4.1 MMOL/L (3.5-5.1); Total Protein 5.6 G/DL (6.4-8.3)
[2020-12-07 05:15] LABS: Allen Test Positive; Pt O2 Delivery Device Ventilator
[2020-12-07 05:19] LABS: ABG Base Excess 7.2 MMOL/L (-2.5-2.5); ABG HCO3 31.1 MMOL/L (20-26); ABG Oxygen Saturation 99.6 % (95-100); ABG PCO2 49.5 MM HG (35-48); ABG PH 7.427 (7.35-7.45); ABG TCO2 29.9 MMOL/L (23-27)
[2020-12-07] MEDS: methylPREDNISolone SOD SUC 40 MG/1 ML VIAL IV SCH (09:12)
[2020-12-07] MEDS: LORazepam 2 MG/1 ML VIAL IV PRN (09:15)
[2020-12-07] MEDS: ASCORBIC ACID 500 MG TABLET PO SCH ×2 (09:19→21:58)
[2020-12-07] MEDS: ASPIRIN CHEW 81 MG TABLET PO SCH (09:19)
[2020-12-07] MEDS: FUROSEMIDE 40 MG/4 ML VIAL IV SCH (09:19)
[2020-12-07] MEDS: MULTIVITAMIN LIQUID (CENTRUM) 60 ML BOTTLE PO SCH (09:19)
[2020-12-07] MEDS: AMIODARONE 200 MG TABLET PO SCH ×2 (09:19→21:58)
[2020-12-07] MEDS: FLUTICASONE 50 MCG NASAL SPRAY 16 GM BOTTLE BOTH NARES SCH ×2 (09:19→21:59)
[2020-12-07] MEDS: INSULIN GLARGINE 100 UNIT/ML SUBCUT SCH (09:19)
[2020-12-07] MEDS: TAMSULOSIN 0.4 MG CAPSULE PO SCH (09:19)
[2020-12-07] MEDS: FAMOTIDINE 20 MG TABLET PO SCH ×2 (09:19→21:58)
[2020-12-07] MEDS: CHOLECALCIFEROL 1,000 UNIT TABLET PO SCH (09:20)
[2020-12-07] MEDS: ZINC GLUCONATE 50 MG TABLET PO SCH (09:20)
[2020-12-07] MEDS: LEVOFLOXACIN 750 MG TABLET PO SCH (09:36)
[2020-12-07] MEDS: MIDAZOLAM 100 MG in SODIUM CHLORIDE 0.9% 80 ML IV PRN (12:50)
[2020-12-07] MEDS: ENOXAPARIN 40 MG/0.4 ML SYRINGE SUBCUT SCH (18:36)
[2020-12-07] MEDS: ACETAMINOPHEN 325 MG TABLET PO PRN ×2 (19:48→23:40)
[2020-12-07] MEDS: SIMVASTATIN 20 MG TABLET PO SCH (21:58)
[2020-12-08] MEDS: ALBUTEROL/IPRATROPIUM 3 ML NEB RESP TX SCH ×7 (00:05→23:38)
[2020-12-08] MEDS: INSULIN LISPRO 100 UNIT/ML SUBCUT SCH ×4 (00:17→18:10)
[2020-12-08 04:15] LABS: ABG Base Excess 7.9 MMOL/L (-2.5-2.5); ABG HCO3 31.7 MMOL/L (20-26); ABG Oxygen Saturation 97.3 % (95-100); ABG PCO2 49.7 MM HG (35-48); ABG PH 7.436 (7.35-7.45); ABG PO2 84.3 MM HG (80-95); ABG TCO2 30.4 MMOL/L (23-27); Allen Test Positive; Pt O2 Delivery Device Ventilator
[2020-12-08] MEDS: PHENYLEPHRINE DRIP 40 MG/250 ML PREMIX IV PRN (04:35)
[2020-12-08 05:22] LABS: Basophils % 0.1 % (0.0-0.8); Hematocrit 29.6 VOL% (42.0-52.0); Hemoglobin 9.9 GM/DL (14.0-18.0); Immature Granulocytes % 1.8 %; Immature Granulocytes Absolute 0.29 #; Lymphocytes # 0.4 10*3/uL (1.4-4.0); Lymphocytes % 2.5 % (21.2-54.2); Mean Corpuscular HGB Conc 33.4 GM/DL (32-36); Mean Corpuscular Volume 91.4 FL (87-102); Mean Platelet Volume 9.6 FL (9.6-12.0); Monocytes % 6.4 % (1.7-12.7); Neutrophils % 89.2 % (38.7-73.9); Platelet Count 229 T/CUMM (130-400); Red Blood Count 3.24 MC/CUMM (3.8-5.5); Red Cell Distribution Width 14.9 % (9.3-17.3); White Blood Count 16.4 T/CUMM (4-12)
[2020-12-08 05:43] LABS: Calcium 8.5 MG/DL (8.5-10.1); Potassium 3.3 MMOL/L (3.5-5.1)
[2020-12-08 05:46] LABS: Hypochromasia 1+; Lymphocytes 2 % (20-55); Microcytosis 1+; Platelet Estimate Adequate; Segmented Neutrophils 92 % (50-85); Total Cells Counted 100
[2020-12-08] MEDS: FLUTICASONE 50 MCG NASAL SPRAY 16 GM BOTTLE BOTH NARES SCH ×2 (08:15→21:23)
[2020-12-08] MEDS: POTASSIUM CHLORIDE RIDER 10 MEQ in PREMIX 1 EACH IV PRN ×4 (08:15→14:05)
[2020-12-08] MEDS: FUROSEMIDE 40 MG/4 ML VIAL IV SCH (08:15)
[2020-12-08] MEDS ORDERED: ROCURONIUM 50 MG/5 ML VIAL IV ONE (08:24)
[2020-12-08] MEDS ORDERED: fentaNYL 100 MCG/2 ML VIAL ONE (08:25)
[2020-12-08] MEDS ORDERED: MIDAZOLAM 2 MG/2 ML VIAL ONE (08:25)
[2020-12-08] MEDS ORDERED: BUPIVACAINE MPF 0.25% 30 ML VIAL ONE (08:28)
[2020-12-08] MEDS: INSULIN GLARGINE 100 UNIT/ML SUBCUT SCH (09:00)
[2020-12-08] MEDS ORDERED: methylPREDNISolone SOD SUC 125 MG/2 ML VIAL ONE (10:33)
[2020-12-08] MEDS ORDERED: PHENYLEPHRINE 1 MG/10 ML SYRINGE IV ONE (10:33)
[2020-12-08] MEDS: ASPIRIN CHEW 81 MG TABLET PO SCH (12:20)
[2020-12-08] MEDS: MULTIVITAMIN LIQUID (CENTRUM) 60 ML BOTTLE PO SCH (12:20)
[2020-12-08] MEDS: TAMSULOSIN 0.4 MG CAPSULE PO SCH (12:20)
[2020-12-08] MEDS: CHOLECALCIFEROL 1,000 UNIT TABLET PO SCH (12:20)
[2020-12-08] MEDS: ASCORBIC ACID 500 MG TABLET PO SCH ×2 (12:20→21:03)
[2020-12-08] MEDS: ZINC GLUCONATE 50 MG TABLET PO SCH (12:20)
[2020-12-08] MEDS: predniSONE 20 MG TABLET PO SCH (12:20)
[2020-12-08] MEDS: FAMOTIDINE 20 MG TABLET PO SCH ×2 (12:20→21:03)
[2020-12-08] MEDS: AMIODARONE 200 MG TABLET PO SCH ×2 (12:20→21:03)
[2020-12-08] MEDS: fentaNYL INJ 2,500 MCG in SODIUM CHLORIDE 0.9% 450 ML IV PRN (13:50)
[2020-12-08] MEDS: MIDAZOLAM 100 MG in SODIUM CHLORIDE 0.9% 80 ML IV PRN (13:55)
[2020-12-08] MEDS: ACETAMINOPHEN 325 MG TABLET PO PRN (14:35)
[2020-12-08] MEDS: ENOXAPARIN 40 MG/0.4 ML SYRINGE SUBCUT SCH (18:10)
[2020-12-08 20:02] LABS: Basophils % 0.1 % (0.0-0.8); Hematocrit 29.7 VOL% (42.0-52.0); Hemoglobin 9.3 GM/DL (14.0-18.0); Immature Granulocytes % 1.6 %; Immature Granulocytes Absolute 0.26 #; Lymphocytes # 0.3 10*3/uL (1.4-4.0); Lymphocytes % 1.6 % (21.2-54.2); Mean Corpuscular HGB Conc 31.3 GM/DL (32-36); Monocytes % 2.1 % (1.7-12.7); Neutrophils % 94.6 % (38.7-73.9); Platelet Count 245 T/CUMM (130-400); Red Blood Count 3.16 MC/CUMM (3.8-5.5); Red Cell Distribution Width 15.1 % (9.3-17.3); White Blood Count 16.7 T/CUMM (4-12)
[2020-12-08] MEDS: LORazepam 2 MG/1 ML VIAL IV PRN (20:19)
[2020-12-08 20:23] LABS: Hypochromasia 1+; Lymphocytes 1 % (20-55); Microcytosis 1+; Segmented Neutrophils 99 % (50-85); Total Cells Counted 100
[2020-12-08 20:24] LABS: Platelet Estimate Adequate; Polychromasia 1+
[2020-12-08] MEDS: SIMVASTATIN 20 MG TABLET PO SCH (21:03)
[2020-12-09] MEDS: INSULIN LISPRO 100 UNIT/ML SUBCUT SCH ×5 (00:08→23:30)
[2020-12-09] MEDS: LORazepam 2 MG/1 ML VIAL IV PRN (01:32)
[2020-12-09] MEDS: ALBUTEROL/IPRATROPIUM 3 ML NEB RESP TX SCH ×6 (03:25→23:28)
[2020-12-09] MEDS: PHENYLEPHRINE DRIP 40 MG/250 ML PREMIX IV PRN ×5 (04:04→21:12)
[2020-12-09 04:30] LABS: ABG Base Excess 6.6 MMOL/L (-2.5-2.5); ABG HCO3 30.5 MMOL/L (20-26); ABG Oxygen Saturation 98.4 % (95-100); ABG PCO2 52.6 MM HG (35-48); ABG PH 7.401 (7.35-7.45); ABG PO2 99.5 MM HG (80-95); ABG TCO2 29.9 MMOL/L (23-27); Allen Test Positive; Pt O2 Delivery Device Ventilator
[2020-12-09 04:54] LABS: Basophils % 0.1 % (0.0-0.8); Hematocrit 29.7 VOL% (42.0-52.0); Hemoglobin 9.5 GM/DL (14.0-18.0); Immature Granulocytes % 3.1 %; Immature Granulocytes Absolute 0.88 #; Lymphocytes # 0.5 10*3/uL (1.4-4.0); Lymphocytes % 1.8 % (21.2-54.2); Mean Corpuscular Volume 94.6 FL (87-102); Mean Platelet Volume 9.9 FL (9.6-12.0); Monocytes % 5.4 % (1.7-12.7); NRBC # 0.03 10*3/uL; Neutrophils % 89.6 % (38.7-73.9); Platelet Count 348 T/CUMM (130-400); Red Blood Count 3.14 MC/CUMM (3.8-5.5); Red Cell Distribution Width 15.7 % (9.3-17.3); White Blood Count 28.2 T/CUMM (4-12)
[2020-12-09 05:17] LABS: Hypochromasia 1+; Lymphocytes 3 % (20-55); Microcytosis 1+; Platelet Estimate Adequate; Segmented Neutrophils 89 % (50-85); Total Cells Counted 100
[2020-12-09 05:34] LABS: Calcium 8.5 MG/DL (8.5-10.1); Osmolality,Calculated 321.6 MOS/KG (273-304); Potassium 3.6 MMOL/L (3.5-5.1)
[2020-12-09] MEDS: fentaNYL INJ 2,500 MCG in SODIUM CHLORIDE 0.9% 450 ML IV PRN ×2 (08:45→18:25)
[2020-12-09] MEDS: FUROSEMIDE 40 MG/4 ML VIAL IV SCH (09:10)
[2020-12-09] MEDS: INSULIN GLARGINE 100 UNIT/ML SUBCUT SCH (09:10)
[2020-12-09] MEDS: ASPIRIN CHEW 81 MG TABLET PO SCH (09:15)
[2020-12-09] MEDS: ZINC GLUCONATE 50 MG TABLET PO SCH (09:15)
[2020-12-09] MEDS: FLUTICASONE 50 MCG NASAL SPRAY 16 GM BOTTLE BOTH NARES SCH ×2 (09:15→20:49)
[2020-12-09] MEDS: ASCORBIC ACID 500 MG TABLET PO SCH ×2 (09:15→20:48)
[2020-12-09] MEDS: AMIODARONE 200 MG TABLET PO SCH ×2 (09:15→20:48)
[2020-12-09] MEDS: CHOLECALCIFEROL 1,000 UNIT TABLET PO SCH (09:15)
[2020-12-09] MEDS: predniSONE 20 MG TABLET PO SCH (09:15)
[2020-12-09] MEDS: MULTIVITAMIN LIQUID (CENTRUM) 60 ML BOTTLE PO SCH (09:15)
[2020-12-09] MEDS: FAMOTIDINE 20 MG TABLET PO SCH ×2 (09:15→20:48)
[2020-12-09] MEDS: TAMSULOSIN 0.4 MG CAPSULE PO SCH (09:15)
[2020-12-09 11:01] LABS: ABG Base Excess 9.2 MMOL/L (-2.5-2.5); ABG HCO3 34.3 MMOL/L (20-26); ABG Oxygen Saturation 94.1 % (95-100); ABG PCO2 49.3 MM HG (35-48); ABG PO2 70.8 MM HG (80-95); ABG TCO2 35.8 MMOL/L (23-27)
[2020-12-09] MEDS: ENOXAPARIN 40 MG/0.4 ML SYRINGE SUBCUT SCH (17:50)
[2020-12-09] MEDS: MIDAZOLAM 100 MG in SODIUM CHLORIDE 0.9% 80 ML IV PRN (18:25)
[2020-12-09] MEDS: SIMVASTATIN 20 MG TABLET PO SCH (20:48)
[2020-12-10] MEDS: PHENYLEPHRINE DRIP 40 MG/250 ML PREMIX IV PRN ×9 (00:29→22:06)
[2020-12-10] MEDS: ACETAMINOPHEN 325 MG TABLET PO PRN ×3 (00:40→19:40)
[2020-12-10] MEDS: LORazepam 2 MG/1 ML VIAL IV PRN (00:40)
[2020-12-10] MEDS ORDERED: NOREPINEPHRINE 4 MG/4 ML VIAL IV ONE (02:25)
[2020-12-10] MEDS: NOREPINEPHRINE 8 MG in SODIUM CHLORIDE 0.9% 242 ML IV PRN ×2 (02:30→17:45)
[2020-12-10] MEDS: ALBUTEROL/IPRATROPIUM 3 ML NEB RESP TX SCH ×6 (03:01→23:37)
[2020-12-10 04:27] LABS: Basophils # 0.1 10*3/uL (0.0-0.2); Basophils % 0.2 % (0.0-0.8); Hematocrit 29.3 VOL% (42.0-52.0); Hemoglobin 9.1 GM/DL (14.0-18.0); Immature Granulocytes % 2.7 %; Immature Granulocytes Absolute 0.73 #; Lymphocytes # 1.1 10*3/uL (1.4-4.0); Lymphocytes % 4.2 % (21.2-54.2); Mean Corpuscular HGB Conc 31.1 GM/DL (32-36); Mean Corpuscular Volume 97.3 FL (87-102); Monocytes % 6.6 % (1.7-12.7); NRBC # 0.24 10*3/uL; Neutrophils % 86.3 % (38.7-73.9); Platelet Count 277 T/CUMM (130-400); Red Blood Count 3.01 MC/CUMM (3.8-5.5); Red Cell Distribution Width 16.1 % (9.3-17.3); White Blood Count 26.8 T/CUMM (4-12)
[2020-12-10 04:46] LABS: Calcium 7.6 MG/DL (8.5-10.1); Potassium 3.2 MMOL/L (3.5-5.1)
[2020-12-10 04:55] LABS: Hypochromasia 1+; Lymphocytes 5 % (20-55); Microcytosis 1+; Nucleated Red Blood Cells 1 (0-5); Platelet Estimate Adequate; Segmented Neutrophils 90 % (50-85); Total Cells Counted 100
[2020-12-10] MEDS: INSULIN LISPRO 100 UNIT/ML SUBCUT SCH ×3 (06:46→17:32)
[2020-12-10] MEDS: MULTIVITAMIN LIQUID (CENTRUM) 60 ML BOTTLE PO SCH (08:55)
[2020-12-10] MEDS: CHOLECALCIFEROL 1,000 UNIT TABLET PO SCH (08:55)
[2020-12-10] MEDS: FUROSEMIDE 40 MG/4 ML VIAL IV SCH (08:55)
[2020-12-10] MEDS: INSULIN GLARGINE 100 UNIT/ML SUBCUT SCH (08:55)
[2020-12-10] MEDS: FLUTICASONE 50 MCG NASAL SPRAY 16 GM BOTTLE BOTH NARES SCH ×2 (08:56→20:26)
[2020-12-10] MEDS: predniSONE 10 MG TABLET PO SCH (08:56)
[2020-12-10] MEDS: ZINC GLUCONATE 50 MG TABLET PO SCH (08:56)
[2020-12-10] MEDS: TAMSULOSIN 0.4 MG CAPSULE PO SCH (08:56)
[2020-12-10] MEDS: ASCORBIC ACID 500 MG TABLET PO SCH ×2 (08:56→20:26)
[2020-12-10] MEDS: FAMOTIDINE 20 MG TABLET PO SCH ×2 (08:56→20:26)
[2020-12-10] MEDS: ASPIRIN CHEW 81 MG TABLET PO SCH (08:56)
[2020-12-10] MEDS: AMIODARONE 200 MG TABLET PO SCH ×2 (08:57→20:26)
[2020-12-10] MEDS ORDERED: DEXTROSE 5% 1,000 ML IV SCH (10:00)
[2020-12-10] MEDS: fentaNYL INJ 2,500 MCG in SODIUM CHLORIDE 0.9% 450 ML IV PRN ×2 (12:29→19:53)
[2020-12-10] MEDS: POTASSIUM CHLORIDE 20 MEQ/15 ML UDCUP PER TUBE PRN ×4 (13:05→22:19)
[2020-12-10] MEDS ORDERED: INSULIN GLARGINE 100 UNIT/ML SUBCUT ONE (14:26)
[2020-12-10 14:58] LABS: Bacteria,Urine Many /HPF (Few); Bilirubin,Urine Negative (Negative); Blood, Urine Negative (Negative); Glucose,Urine (UA) Negative (Negative); Ketones,Urine Negative (Negative); Mucus,Urine Occasional /LPF (Occasional); Nitrite,Urine Negative (Negative); Protein,Urine Negative; RBC,Urine 6 /HPF (0-4); Squamous Epithelial Cell,Urine Occasional /HPF (0-10); Urine Appearance Slightly Hazy (Clear); Urine Color Yellow (Yellow); Urine Specific Gravity 1.024 (1.001-1.035); WBC,Urine 25 /HPF (0-6)
[2020-12-10] MEDS: SODIUM CHLORIDE 0.45% 1,000 ML IV SCH (15:10)
[2020-12-10] MEDS: MORPHINE 4 MG/1 ML VIAL IV PRN (15:10)
[2020-12-10] MEDS ORDERED: cefTRIAXone 1,000 MG VIAL IM SCH (15:30)
[2020-12-10] MEDS: METOPROLOL TARTRATE 25 MG TABLET PO SCH ×2 (15:30→20:21)
[2020-12-10] MEDS ORDERED: cefTRIAXone 1,000 MG in SYRINGE 1 EACH IV SCH (16:00)
[2020-12-10] MEDS: ENOXAPARIN 40 MG/0.4 ML SYRINGE SUBCUT SCH (17:21)
[2020-12-10] MEDS: SIMVASTATIN 20 MG TABLET PO SCH (20:26)
[2020-12-11] MEDS: PHENYLEPHRINE DRIP 40 MG/250 ML PREMIX IV PRN ×6 (01:05→21:01)
[2020-12-11] MEDS: NOREPINEPHRINE 8 MG in SODIUM CHLORIDE 0.9% 242 ML IV PRN ×2 (01:05→11:53)
[2020-12-11] MEDS: INSULIN LISPRO 100 UNIT/ML SUBCUT SCH ×4 (01:15→17:42)
[2020-12-11] MEDS: ALBUTEROL/IPRATROPIUM 3 ML NEB RESP TX SCH ×7 (03:10→23:50)
[2020-12-11] MEDS: fentaNYL INJ 2,500 MCG in SODIUM CHLORIDE 0.9% 450 ML IV PRN ×3 (03:51→19:46)
[2020-12-11 04:12] LABS: ABG Base Excess 4.9 MMOL/L (-2.5-2.5); ABG HCO3 30.2 MMOL/L (20-26); ABG Oxygen Saturation 93.7 % (95-100); ABG PCO2 48.5 MM HG (35-48); ABG PH 7.412 (7.35-7.45); ABG PO2 70.6 MM HG (80-95); ABG TCO2 31.7 MMOL/L (23-27)
[2020-12-11 04:13] LABS: Allen Test Positive; Pt O2 Delivery Device Ventilator
[2020-12-11] MEDS: SODIUM CHLORIDE 0.45% 1,000 ML IV SCH (04:30)
[2020-12-11 07:21] LABS: Basophils # 0.1 10*3/uL (0.0-0.2); Basophils % 0.2 % (0.0-0.8); Hematocrit 31.3 VOL% (42.0-52.0); Hemoglobin 9.3 GM/DL (14.0-18.0); Immature Granulocytes % 2.3 %; Immature Granulocytes Absolute 0.62 #; Lymphocytes % 3.9 % (21.2-54.2); Mean Corpuscular HGB Conc 29.7 GM/DL (32-36); Mean Corpuscular Volume 101.3 FL (87-102); Mean Platelet Volume 10.3 FL (9.6-12.0); Monocytes % 3.4 % (1.7-12.7); NRBC # 0.15 10*3/uL; Neutrophils % 90.2 % (38.7-73.9); Platelet Count 187 T/CUMM (130-400); Red Blood Count 3.09 MC/CUMM (3.8-5.5); Red Cell Distribution Width 16.5 % (9.3-17.3); White Blood Count 26.7 T/CUMM (4-12)
[2020-12-11 08:41] LABS: Calcium 7.5 MG/DL (8.5-10.1); Osmolality,Calculated 315.6 MOS/KG (273-304); Potassium 3.8 MMOL/L (3.5-5.1)
[2020-12-11 09:07] LABS: Anisocytosis 2+; Band Neutrophils 4 % (0-10); Lymphocytes 5 % (20-55); Macrocytosis 2+; Ovalocytes 1+; Platelet Estimate Normal; Polychromasia Few; Segmented Neutrophils 89 % (50-85); Total Cells Counted 100
[2020-12-11] MEDS: INSULIN GLARGINE 100 UNIT/ML SUBCUT SCH (09:30)
[2020-12-11] MEDS: ASPIRIN CHEW 81 MG TABLET PO SCH (09:30)
[2020-12-11] MEDS: MULTIVITAMIN LIQUID (CENTRUM) 60 ML BOTTLE PO SCH (09:30)
[2020-12-11] MEDS: AMIODARONE 200 MG TABLET PO SCH ×2 (09:31→21:30)
[2020-12-11] MEDS: CHOLECALCIFEROL 1,000 UNIT TABLET PO SCH (09:31)
[2020-12-11] MEDS: FAMOTIDINE 20 MG TABLET PO SCH ×2 (09:31→21:30)
[2020-12-11] MEDS: ASCORBIC ACID 500 MG TABLET PO SCH ×2 (09:31→21:30)
[2020-12-11] MEDS: TAMSULOSIN 0.4 MG CAPSULE PO SCH (09:31)
[2020-12-11] MEDS: predniSONE 10 MG TABLET PO SCH (09:31)
[2020-12-11] MEDS: ZINC GLUCONATE 50 MG TABLET PO SCH (09:31)
[2020-12-11] MEDS: FLUTICASONE 50 MCG NASAL SPRAY 16 GM BOTTLE BOTH NARES SCH ×2 (09:32→21:32)
[2020-12-11 11:14] LABS: ABG Base Excess 2.5 MMOL/L (-2.5-2.5); ABG HCO3 26.6 MMOL/L (20-26); ABG Oxygen Saturation 96.5 % (95-100); ABG PCO2 48.3 MM HG (35-48); ABG PH 7.374 (7.35-7.45); ABG PO2 80.5 MM HG (80-95); ABG TCO2 26.3 MMOL/L (23-27)
[2020-12-11] MEDS: METOPROLOL TARTRATE 25 MG TABLET PO SCH ×2 (11:16→21:32)
[2020-12-11] MEDS ORDERED: NOREPINEPHRINE 4 MG/4 ML VIAL IV ONE (11:33)
[2020-12-11] MEDS: DEXTROSE 5% 1,000 ML IV SCH (11:50)
[2020-12-11] MEDS: PIPERACILLIN/TAZOBACTAM 3,375 MG in SODIUM CHLORIDE 0.9% 100 ML IV SCH ×2 (11:50→18:08)
[2020-12-11] MEDS: VANCOMYCIN INJ 1,250 MG in SODIUM CHLORIDE 0.9% 250 ML IV SCH (17:44)
[2020-12-11] MEDS: ENOXAPARIN 40 MG/0.4 ML SYRINGE SUBCUT SCH (18:15)
[2020-12-11] MEDS: MIDAZOLAM 100 MG in SODIUM CHLORIDE 0.9% 80 ML IV PRN (19:46)
[2020-12-11] MEDS: DEXMEDETOMIDINE 400 MCG in SODIUM CHLORIDE 0.9% 96 ML IV PRN (20:00)
[2020-12-11] MEDS: SIMVASTATIN 20 MG TABLET PO SCH (21:29)
[2020-12-11] MEDS: QUEtiapine 25 MG TABLET PO SCH (21:30)
[2020-12-12] MEDS: PHENYLEPHRINE DRIP 40 MG/250 ML PREMIX IV PRN ×2 (00:35→10:34)
[2020-12-12] MEDS: INSULIN LISPRO 100 UNIT/ML SUBCUT SCH ×5 (00:36→23:29)
[2020-12-12] MEDS: LORazepam 2 MG/1 ML VIAL IV PRN ×2 (00:48→03:37)
[2020-12-12] MEDS: NOREPINEPHRINE 8 MG in SODIUM CHLORIDE 0.9% 242 ML IV PRN ×4 (01:14→21:39)
[2020-12-12] MEDS: DEXMEDETOMIDINE 400 MCG in SODIUM CHLORIDE 0.9% 96 ML IV PRN ×4 (02:15→23:21)
[2020-12-12] MEDS: PIPERACILLIN/TAZOBACTAM 3,375 MG in SODIUM CHLORIDE 0.9% 100 ML IV SCH ×3 (03:00→17:38)
[2020-12-12] MEDS: DEXTROSE 5% 1,000 ML IV SCH ×2 (03:01→23:36)
[2020-12-12] MEDS: ALBUTEROL/IPRATROPIUM 3 ML NEB RESP TX SCH ×6 (03:02→23:51)
[2020-12-12 04:40] LABS: ABG HCO3 25.2 MMOL/L (20-26); ABG Oxygen Saturation 92.8 % (95-100); ABG PH 7.362 (7.35-7.45); ABG PO2 65.2 MM HG (80-95); Allen Test Positive; Pt O2 Delivery Device Ventilator
[2020-12-12 05:28] LABS: Basophils % 0.2 % (0.0-0.8); Eosinophils % 0.1 % (0.00-10.9); Hematocrit 28.1 VOL% (42.0-52.0); Immature Granulocytes % 1.3 %; Immature Granulocytes Absolute 0.25 #; Lymphocytes # 0.6 10*3/uL (1.4-4.0); Mean Corpuscular Volume 96.9 FL (87-102); Mean Platelet Volume 11.1 FL (9.6-12.0); Monocytes % 2.6 % (1.7-12.7); NRBC # 0.12 10*3/uL; Neutrophils % 92.8 % (38.7-73.9); Platelet Count 119 T/CUMM (130-400); Red Cell Distribution Width 16.8 % (9.3-17.3)
[2020-12-12 05:35] LABS: Calcium 7.3 MG/DL (8.5-10.1); Potassium 4.1 MMOL/L (3.5-5.1)
[2020-12-12] MEDS: VANCOMYCIN INJ 1,250 MG in SODIUM CHLORIDE 0.9% 250 ML IV SCH ×2 (06:30→17:39)
[2020-12-12] MEDS: fentaNYL INJ 2,500 MCG in SODIUM CHLORIDE 0.9% 450 ML IV PRN ×3 (07:21→23:22)
[2020-12-12 09:13] LABS: Eosinophils 2 % (0-10); Lymphocytes 2 % (20-55); Platelet Estimate Decreased; Segmented Neutrophils 94 % (50-85); Total Cells Counted 100
[2020-12-12 09:14] LABS: Ovalocytes Few
[2020-12-12] MEDS: CHOLECALCIFEROL 1,000 UNIT TABLET PO SCH (10:09)
[2020-12-12] MEDS: TAMSULOSIN 0.4 MG CAPSULE PO SCH (10:10)
[2020-12-12] MEDS: AMIODARONE 200 MG TABLET PO SCH ×2 (10:10→20:23)
[2020-12-12] MEDS: ASCORBIC ACID 500 MG TABLET PO SCH ×2 (10:10→20:22)
[2020-12-12] MEDS: METOPROLOL TARTRATE 25 MG TABLET PO SCH ×2 (10:11→20:22)
[2020-12-12] MEDS: ASPIRIN CHEW 81 MG TABLET PO SCH (10:11)
[2020-12-12] MEDS: ZINC GLUCONATE 50 MG TABLET PO SCH (10:11)
[2020-12-12] MEDS: FAMOTIDINE 20 MG TABLET PO SCH ×2 (10:11→20:22)
[2020-12-12] MEDS: MULTIVITAMIN LIQUID (CENTRUM) 60 ML BOTTLE PO SCH (10:12)
[2020-12-12] MEDS: FLUTICASONE 50 MCG NASAL SPRAY 16 GM BOTTLE BOTH NARES SCH ×2 (10:13→20:24)
[2020-12-12] MEDS: INSULIN GLARGINE 100 UNIT/ML SUBCUT SCH (12:51)
[2020-12-12] MEDS: ALBUMIN 25% 12.5 GM in PREMIX 1 EACH IV SCH ×2 (13:40→20:20)
[2020-12-12] MEDS: ENOXAPARIN 40 MG/0.4 ML SYRINGE SUBCUT SCH (17:40)
[2020-12-12] MEDS: QUEtiapine 25 MG TABLET PO SCH (20:21)
[2020-12-12] MEDS: SIMVASTATIN 20 MG TABLET PO SCH (20:22)
[2020-12-13] MEDS: PIPERACILLIN/TAZOBACTAM 3,375 MG in SODIUM CHLORIDE 0.9% 100 ML IV SCH (01:56)
[2020-12-13] MEDS: ALBUTEROL/IPRATROPIUM 3 ML NEB RESP TX SCH ×5 (03:15→19:20)
[2020-12-13 04:03] LABS: Basophils % 0.2 % (0.0-0.8); Eosinophils # 0.1 10*3/uL (0.0-0.87); Eosinophils % 0.8 % (0.00-10.9); Hematocrit 30.3 VOL% (42.0-52.0); Hemoglobin 8.9 GM/DL (14.0-18.0); Immature Granulocytes % 1.5 %; Immature Granulocytes Absolute 0.18 #; Lymphocytes # 0.5 10*3/uL (1.4-4.0); Lymphocytes % 4.2 % (21.2-54.2); Mean Corpuscular HGB Conc 29.4 GM/DL (32-36); Mean Corpuscular Volume 103.4 FL (87-102); Mean Platelet Volume 10.8 FL (9.6-12.0); Monocytes % 2.1 % (1.7-12.7); NRBC # 0.17 10*3/uL; Neutrophils % 91.2 % (38.7-73.9); Platelet Count 107 T/CUMM (130-400); Red Blood Count 2.93 MC/CUMM (3.8-5.5); Red Cell Distribution Width 16.6 % (9.3-17.3); White Blood Count 12.4 T/CUMM (4-12)
[2020-12-13] MEDS: ALBUMIN 25% 12.5 GM in PREMIX 1 EACH IV SCH ×3 (04:08→22:07)
[2020-12-13 05:14] LABS: Calcium 7.4 MG/DL (8.5-10.1); Osmolality,Calculated 301.3 MOS/KG (273-304); Potassium 3.9 MMOL/L (3.5-5.1)
[2020-12-13 05:21] LABS: Band Neutrophils 2 % (0-10); Hypochromasia 1+; Lymphocytes 9 % (20-55); Myelocytes 1 %; Nucleated Red Blood Cells 2 (0-5); Ovalocytes Slight; Polychromasia Slight; Segmented Neutrophils 86 % (50-85); Total Cells Counted 100
[2020-12-13 05:22] LABS: Anisocytosis 1+; Microcytosis 1+
[2020-12-13] MEDS: NOREPINEPHRINE 8 MG in SODIUM CHLORIDE 0.9% 242 ML IV PRN ×3 (05:38→22:38)
[2020-12-13] MEDS: INSULIN LISPRO 100 UNIT/ML SUBCUT SCH ×4 (05:39→23:41)
[2020-12-13] MEDS: VANCOMYCIN INJ 1,250 MG in SODIUM CHLORIDE 0.9% 250 ML IV SCH (05:40)
[2020-12-13] MEDS: DEXMEDETOMIDINE 400 MCG in SODIUM CHLORIDE 0.9% 96 ML IV PRN ×3 (07:28→19:50)
[2020-12-13] MEDS: fentaNYL INJ 2,500 MCG in SODIUM CHLORIDE 0.9% 450 ML IV PRN ×3 (07:30→23:21)
[2020-12-13] MEDS: predniSONE 10 MG TABLET PO SCH (07:31)
[2020-12-13] MEDS ORDERED: KETOROLAC 15 MG/1 ML VIAL IV PRN (09:53)
[2020-12-13] MEDS: ZINC GLUCONATE 50 MG TABLET PO SCH (10:05)
[2020-12-13] MEDS: ASCORBIC ACID 500 MG TABLET PO SCH ×2 (10:05→22:23)
[2020-12-13] MEDS: TAMSULOSIN 0.4 MG CAPSULE PO SCH (10:06)
[2020-12-13] MEDS: AMIODARONE 200 MG TABLET PO SCH ×2 (10:06→22:24)
[2020-12-13] MEDS: FAMOTIDINE 20 MG TABLET PO SCH ×2 (10:06→22:22)
[2020-12-13] MEDS: predniSONE 20 MG TABLET PO SCH (10:06)
[2020-12-13] MEDS: CHOLECALCIFEROL 1,000 UNIT TABLET PO SCH (10:07)
[2020-12-13] MEDS: ASPIRIN CHEW 81 MG TABLET PO SCH (10:07)
[2020-12-13] MEDS: METOPROLOL TARTRATE 25 MG TABLET PO SCH ×2 (10:07→22:39)
[2020-12-13] MEDS: INSULIN GLARGINE 100 UNIT/ML SUBCUT SCH (10:08)
[2020-12-13] MEDS: FLUTICASONE 50 MCG NASAL SPRAY 16 GM BOTTLE BOTH NARES SCH ×2 (10:08→22:29)
[2020-12-13] MEDS: MULTIVITAMIN LIQUID (CENTRUM) 60 ML BOTTLE PO SCH (10:08)
[2020-12-13] MEDS: AMPICILLIN INJ 500 MG in SODIUM CHLORIDE 0.9% 100 ML IV SCH ×2 (12:17→17:50)
[2020-12-13] MEDS: DEXTROSE 5% 1,000 ML IV SCH (15:35)
[2020-12-13] MEDS: SIMVASTATIN 20 MG TABLET PO SCH (22:22)
[2020-12-13] MEDS: QUEtiapine 25 MG TABLET PO SCH (22:23)
[2020-12-14] MEDS: MIDAZOLAM 100 MG in SODIUM CHLORIDE 0.9% 80 ML IV PRN ×2 (00:10→08:56)
[2020-12-14] MEDS: AMPICILLIN INJ 500 MG in SODIUM CHLORIDE 0.9% 100 ML IV SCH ×4 (00:20→18:17)
[2020-12-14] MEDS: DEXMEDETOMIDINE 400 MCG in SODIUM CHLORIDE 0.9% 96 ML IV PRN ×4 (02:13→22:22)
[2020-12-14] MEDS: ALBUTEROL/IPRATROPIUM 3 ML NEB RESP TX SCH ×6 (03:55→19:20)
[2020-12-14 04:23] LABS: ABG Base Excess 4.9 MMOL/L (-2.5-2.5); ABG HCO3 30.2 MMOL/L (20-26); ABG Oxygen Saturation 97.4 % (95-100); ABG PH 7.408 (7.35-7.45); ABG PO2 100.3 MM HG (80-95); ABG TCO2 31.7 MMOL/L (23-27); Pt O2 Delivery Device Ventilator
[2020-12-14] MEDS: DEXTROSE 5% 1,000 ML IV SCH ×2 (05:27→18:13)
[2020-12-14 06:08] LABS: Basophils % 0.1 % (0.0-0.8); Eosinophils # 0.1 10*3/uL (0.0-0.87); Eosinophils % 1.2 % (0.00-10.9); Hemoglobin 6.8 GM/DL (14.0-18.0); Immature Granulocytes % 1.1 %; Immature Granulocytes Absolute 0.09 #; Lymphocytes # 0.4 10*3/uL (1.4-4.0); Lymphocytes % 4.4 % (21.2-54.2); Mean Corpuscular HGB Conc 30.9 GM/DL (32-36); Mean Corpuscular Volume 96.5 FL (87-102); Mean Platelet Volume 10.3 FL (9.6-12.0); Monocytes % 1.5 % (1.7-12.7); NRBC # 0.03 10*3/uL; Neutrophils % 91.7 % (38.7-73.9); Platelet Count 117 T/CUMM (130-400); Red Blood Count 2.28 MC/CUMM (3.8-5.5); Red Cell Distribution Width 17.1 % (9.3-17.3); White Blood Count 8.2 T/CUMM (4-12)
[2020-12-14 06:23] LABS: Calcium 7.3 MG/DL (8.5-10.1); Osmolality,Calculated 295.3 MOS/KG (273-304); Potassium 3.3 MMOL/L (3.5-5.1)
[2020-12-14 06:29] LABS: Hypochromasia 2+; Lymphocytes 2 % (20-55); Microcytosis 1+; Platelet Estimate Decreased; Segmented Neutrophils 96 % (50-85); Total Cells Counted 100
[2020-12-14] MEDS: INSULIN LISPRO 100 UNIT/ML SUBCUT SCH ×3 (06:29→18:13)
[2020-12-14] MEDS: ALBUMIN 25% 12.5 GM in PREMIX 1 EACH IV SCH (07:12)
[2020-12-14] MEDS: NOREPINEPHRINE 8 MG in SODIUM CHLORIDE 0.9% 242 ML IV PRN ×2 (07:17→14:00)
[2020-12-14] MEDS ORDERED: ALBUMIN 25% 12.5 GM in PREMIX 1 EACH IV SCH (07:30)
[2020-12-14] MEDS: fentaNYL INJ 2,500 MCG in SODIUM CHLORIDE 0.9% 450 ML IV PRN ×3 (07:57→23:36)
[2020-12-14 08:39] LABS: Hematocrit 22.4 VOL% (42.0-52.0); Hemoglobin 6.7 GM/DL (14.0-18.0)
[2020-12-14] MEDS ORDERED: MIDAZOLAM 2 MG/2 ML VIAL ONE (08:48)
[2020-12-14] MEDS ORDERED: MIDAZOLAM 2 MG/2 ML VIAL IV ONE (08:51)
[2020-12-14] MEDS: predniSONE 20 MG TABLET PO SCH (09:43)
[2020-12-14] MEDS: POTASSIUM CHLORIDE 20 MEQ/15 ML UDCUP PER TUBE PRN ×4 (09:43→22:34)
[2020-12-14] MEDS: ASPIRIN CHEW 81 MG TABLET PO SCH (09:43)
[2020-12-14] MEDS: FAMOTIDINE 20 MG TABLET PO SCH ×2 (09:43→20:41)
[2020-12-14] MEDS: TAMSULOSIN 0.4 MG CAPSULE PO SCH (09:43)
[2020-12-14] MEDS: AMIODARONE 200 MG TABLET PO SCH ×2 (09:44→20:41)
[2020-12-14] MEDS: ZINC GLUCONATE 50 MG TABLET PO SCH (09:44)
[2020-12-14] MEDS: CHOLECALCIFEROL 1,000 UNIT TABLET PO SCH (09:44)
[2020-12-14] MEDS: METOPROLOL TARTRATE 25 MG TABLET PO SCH ×2 (09:44→21:03)
[2020-12-14] MEDS: INSULIN GLARGINE 100 UNIT/ML SUBCUT SCH (09:44)
[2020-12-14] MEDS: ASCORBIC ACID 500 MG TABLET PO SCH ×2 (09:44→20:42)
[2020-12-14] MEDS: FLUTICASONE 50 MCG NASAL SPRAY 16 GM BOTTLE BOTH NARES SCH ×2 (09:46→20:53)
[2020-12-14] MEDS: MULTIVITAMIN LIQUID (CENTRUM) 60 ML BOTTLE PO SCH (09:47)
[2020-12-14] MEDS: DEXTROSE 50% 25 GM/50 ML VIAL IV PRN ×2 (11:54→18:08)
[2020-12-14] MEDS: QUEtiapine 25 MG TABLET PO SCH (20:41)
[2020-12-14] MEDS: SIMVASTATIN 20 MG TABLET PO SCH (20:42)
[2020-12-15] MEDS: ALBUTEROL/IPRATROPIUM 3 ML NEB RESP TX SCH ×7 (00:17→23:36)
[2020-12-15] MEDS: INSULIN LISPRO 100 UNIT/ML SUBCUT SCH ×5 (00:42→23:56)
[2020-12-15] MEDS: AMPICILLIN INJ 500 MG in SODIUM CHLORIDE 0.9% 100 ML IV SCH ×5 (00:59→23:55)
[2020-12-15] MEDS: NOREPINEPHRINE 8 MG in SODIUM CHLORIDE 0.9% 242 ML IV PRN (02:36)
[2020-12-15 03:52] LABS: ABG Base Excess 6.4 MMOL/L (-2.5-2.5); ABG HCO3 31.3 MMOL/L (20-26); ABG Oxygen Saturation 96.6 % (95-100); ABG PCO2 47.1 MM HG (35-48); ABG PH 7.441 (7.35-7.45); ABG PO2 88.9 MM HG (80-95); ABG TCO2 32.8 MMOL/L (23-27); Allen Test Positive; Pt O2 Delivery Device Ventilator
[2020-12-15 04:33] LABS: Basophils % 0.1 % (0.0-0.8); Eosinophils # 0.1 10*3/uL (0.0-0.87); Hematocrit 26.4 VOL% (42.0-52.0); Hemoglobin 8.7 GM/DL (14.0-18.0); Immature Granulocytes % 0.8 %; Immature Granulocytes Absolute 0.07 #; Lymphocytes # 0.4 10*3/uL (1.4-4.0); Lymphocytes % 5.1 % (21.2-54.2); Mean Corpuscular Volume 90.1 FL (87-102); Mean Platelet Volume 10.7 FL (9.6-12.0); Monocytes % 1.5 % (1.7-12.7); Neutrophils % 91.5 % (38.7-73.9); Platelet Count 123 T/CUMM (130-400); Red Blood Count 2.93 MC/CUMM (3.8-5.5); Red Cell Distribution Width 18.4 % (9.3-17.3); White Blood Count 8.3 T/CUMM (4-12)
[2020-12-15] MEDS: DEXMEDETOMIDINE 400 MCG in SODIUM CHLORIDE 0.9% 96 ML IV PRN ×3 (04:34→19:58)
[2020-12-15 05:00] LABS: Calcium 7.4 MG/DL (8.5-10.1); Osmolality,Calculated 290.3 MOS/KG (273-304); Potassium 3.5 MMOL/L (3.5-5.1)
[2020-12-15 05:01] LABS: Band Neutrophils 1 % (0-10); Hypochromasia 2+; Lymphocytes 4 % (20-55); Microcytosis 1+; Platelet Estimate Normal; Segmented Neutrophils 92 % (50-85); Total Cells Counted 100
[2020-12-15] MEDS: DEXTROSE 50% 25 GM/50 ML VIAL IV PRN (05:48)
[2020-12-15] MEDS: fentaNYL INJ 2,500 MCG in SODIUM CHLORIDE 0.9% 450 ML IV PRN ×3 (05:54→19:58)
[2020-12-15] MEDS: DEXTROSE 5% 1,000 ML IV SCH (07:30)
[2020-12-15] MEDS: INSULIN GLARGINE 100 UNIT/ML SUBCUT SCH (08:17)
[2020-12-15] MEDS: METOPROLOL TARTRATE 25 MG TABLET PO SCH ×2 (08:17→20:48)
[2020-12-15] MEDS ORDERED: FUROSEMIDE 40 MG/4 ML VIAL IV SCH (09:30)
[2020-12-15] MEDS: ASPIRIN CHEW 81 MG TABLET PO SCH (09:50)
[2020-12-15] MEDS: FUROSEMIDE 40 MG/4 ML VIAL IV SCH ×2 (09:50→16:30)
[2020-12-15] MEDS: TAMSULOSIN 0.4 MG CAPSULE PO SCH (09:51)
[2020-12-15] MEDS: predniSONE 20 MG TABLET PO SCH (09:51)
[2020-12-15] MEDS: AMIODARONE 200 MG TABLET PO SCH ×2 (09:51→20:47)
[2020-12-15] MEDS: FAMOTIDINE 20 MG TABLET PO SCH ×2 (09:51→20:48)
[2020-12-15] MEDS: CHOLECALCIFEROL 1,000 UNIT TABLET PO SCH (09:51)
[2020-12-15] MEDS: ASCORBIC ACID 500 MG TABLET PO SCH ×2 (09:51→20:47)
[2020-12-15] MEDS: ZINC GLUCONATE 50 MG TABLET PO SCH (09:51)
[2020-12-15] MEDS: MULTIVITAMIN LIQUID (CENTRUM) 60 ML BOTTLE PO SCH (09:52)
[2020-12-15] MEDS: POTASSIUM CHLORIDE 20 MEQ/15 ML UDCUP PER TUBE PRN ×2 (09:52→12:01)
[2020-12-15] MEDS: FLUTICASONE 50 MCG NASAL SPRAY 16 GM BOTTLE BOTH NARES SCH ×2 (09:53→21:52)
[2020-12-15] MEDS: MIDAZOLAM 100 MG in SODIUM CHLORIDE 0.9% 80 ML IV PRN (15:46)
[2020-12-15] MEDS: QUEtiapine 25 MG TABLET PO SCH (20:48)
[2020-12-15] MEDS: SIMVASTATIN 20 MG TABLET PO SCH (20:48)
[2020-12-16] MEDS: DEXTROSE 5% 1,000 ML IV SCH ×3 (00:01→14:38)
[2020-12-16] MEDS: NOREPINEPHRINE 8 MG in SODIUM CHLORIDE 0.9% 242 ML IV PRN ×2 (01:00→20:48)
[2020-12-16] MEDS: ALBUTEROL/IPRATROPIUM 3 ML NEB RESP TX SCH ×6 (02:50→23:17)
[2020-12-16 03:43] LABS: Basophils % 0.2 % (0.0-0.8); Eosinophils # 0.1 10*3/uL (0.0-0.87); Eosinophils % 1.5 % (0.00-10.9); Hematocrit 27.9 VOL% (42.0-52.0); Hemoglobin 8.8 GM/DL (14.0-18.0); Immature Granulocytes % 1.2 %; Immature Granulocytes Absolute 0.07 #; Lymphocytes # 0.4 10*3/uL (1.4-4.0); Lymphocytes % 6.3 % (21.2-54.2); Mean Corpuscular HGB Conc 31.5 GM/DL (32-36); Mean Corpuscular Volume 92.4 FL (87-102); Mean Platelet Volume 10.4 FL (9.6-12.0); Monocytes % 2.3 % (1.7-12.7); Neutrophils % 88.5 % (38.7-73.9); Platelet Count 131 T/CUMM (130-400); Red Blood Count 3.02 MC/CUMM (3.8-5.5); Red Cell Distribution Width 18.1 % (9.3-17.3)
[2020-12-16 03:57] LABS: Calcium 7.4 MG/DL (8.5-10.1); Osmolality,Calculated 290.8 MOS/KG (273-304); Potassium 3.5 MMOL/L (3.5-5.1)
[2020-12-16 04:44] LABS: ABG Base Excess 9.1 MMOL/L (-2.5-2.5); ABG HCO3 34.4 MMOL/L (20-26); ABG Oxygen Saturation 98.1 % (95-100); ABG PCO2 51.8 MM HG (35-48); ABG PO2 126.6 MM HG (80-95); Allen Test Positive; Pt O2 Delivery Device Ventilator
[2020-12-16] MEDS: DEXMEDETOMIDINE 400 MCG in SODIUM CHLORIDE 0.9% 96 ML IV PRN ×3 (05:39→20:47)
[2020-12-16] MEDS: fentaNYL INJ 2,500 MCG in SODIUM CHLORIDE 0.9% 450 ML IV PRN ×3 (05:40→19:45)
[2020-12-16] MEDS: AMPICILLIN INJ 500 MG in SODIUM CHLORIDE 0.9% 100 ML IV SCH ×4 (06:20→23:50)
[2020-12-16] MEDS: INSULIN LISPRO 100 UNIT/ML SUBCUT SCH ×3 (06:22→17:58)
[2020-12-16] MEDS: FUROSEMIDE 40 MG/4 ML VIAL IV SCH ×2 (08:16→16:45)
[2020-12-16] MEDS: AMIODARONE 200 MG TABLET PO SCH ×2 (08:17→20:40)
[2020-12-16] MEDS: predniSONE 20 MG TABLET PO SCH (08:17)
[2020-12-16] MEDS: INSULIN GLARGINE 100 UNIT/ML SUBCUT SCH (08:17)
[2020-12-16] MEDS: METOPROLOL TARTRATE 25 MG TABLET PO SCH ×2 (08:18→20:40)
[2020-12-16] MEDS: ASPIRIN CHEW 81 MG TABLET PO SCH (08:18)
[2020-12-16] MEDS: TAMSULOSIN 0.4 MG CAPSULE PO SCH (08:18)
[2020-12-16] MEDS: ZINC GLUCONATE 50 MG TABLET PO SCH (08:18)
[2020-12-16] MEDS: ASCORBIC ACID 500 MG TABLET PO SCH ×2 (08:18→20:40)
[2020-12-16] MEDS: FAMOTIDINE 20 MG TABLET PO SCH ×2 (08:18→20:40)
[2020-12-16] MEDS: CHOLECALCIFEROL 1,000 UNIT TABLET PO SCH (08:18)
[2020-12-16] MEDS: MULTIVITAMIN LIQUID (CENTRUM) 60 ML BOTTLE PO SCH (08:19)
[2020-12-16] MEDS: FLUTICASONE 50 MCG NASAL SPRAY 16 GM BOTTLE BOTH NARES SCH ×2 (08:19→20:49)
[2020-12-16] MEDS ORDERED: ACYCLOVIR 200 MG CAPSULE PEG ONE (14:30)
[2020-12-16] MEDS: MIDAZOLAM 100 MG in SODIUM CHLORIDE 0.9% 80 ML IV PRN (14:38)
[2020-12-16] MEDS ORDERED: ACYCLOVIR 200 MG CAPSULE PEG SCH ×2 (15:00→21:00)
[2020-12-16] MEDS: ACYCLOVIR 40 MG/ML 30 ML/BOTTLE PEG SCH ×2 (16:45→20:50)
[2020-12-16] MEDS: ENOXAPARIN 40 MG/0.4 ML SYRINGE SUBCUT SCH (17:33)
[2020-12-16] MEDS: SIMVASTATIN 20 MG TABLET PO SCH (20:40)
[2020-12-16] MEDS: QUEtiapine 25 MG TABLET PO SCH (20:40)
[2020-12-17] MEDS: INSULIN LISPRO 100 UNIT/ML SUBCUT SCH ×4 (00:12→17:35)
[2020-12-17] MEDS: ALBUTEROL/IPRATROPIUM 3 ML NEB RESP TX SCH ×5 (03:15→19:47)
[2020-12-17] MEDS: DEXMEDETOMIDINE 400 MCG in SODIUM CHLORIDE 0.9% 96 ML IV PRN ×3 (03:32→18:50)
[2020-12-17] MEDS: fentaNYL INJ 2,500 MCG in SODIUM CHLORIDE 0.9% 450 ML IV PRN ×3 (03:47→20:27)
[2020-12-17] MEDS: DEXTROSE 5% 1,000 ML IV SCH ×2 (03:56→17:45)
[2020-12-17 04:16] LABS: ABG Base Excess 10.5 MMOL/L (-2.5-2.5); ABG HCO3 35.8 MMOL/L (20-26); ABG Oxygen Saturation 98.8 % (95-100); ABG PCO2 52.6 MM HG (35-48); ABG PH 7.451 (7.35-7.45); ABG PO2 234.6 MM HG (80-95); ABG TCO2 37.4 MMOL/L (23-27); Allen Test Positive; Pt O2 Delivery Device Ventilator
[2020-12-17 06:15] LABS: Basophils % 0.3 % (0.0-0.8); Eosinophils # 0.1 10*3/uL (0.0-0.87); Eosinophils % 2.2 % (0.00-10.9); Hematocrit 27.9 VOL% (42.0-52.0); Hemoglobin 8.8 GM/DL (14.0-18.0); Immature Granulocytes % 1.1 %; Immature Granulocytes Absolute 0.04 #; Lymphocytes # 0.4 10*3/uL (1.4-4.0); Lymphocytes % 9.8 % (21.2-54.2); Mean Corpuscular HGB Conc 31.5 GM/DL (32-36); Mean Corpuscular Volume 91.5 FL (87-102); Mean Platelet Volume 10.1 FL (9.6-12.0); Monocytes % 3.8 % (1.7-12.7); Neutrophils % 82.8 % (38.7-73.9); Platelet Count 137 T/CUMM (130-400); Red Blood Count 3.05 MC/CUMM (3.8-5.5); Red Cell Distribution Width 17.2 % (9.3-17.3); White Blood Count 3.7 T/CUMM (4-12)
[2020-12-17] MEDS: AMPICILLIN INJ 500 MG in SODIUM CHLORIDE 0.9% 100 ML IV SCH ×4 (06:22→23:38)
[2020-12-17 06:28] LABS: Calcium 7.2 MG/DL (8.5-10.1); Osmolality,Calculated 293.7 MOS/KG (273-304); Potassium 3.3 MMOL/L (3.5-5.1)
[2020-12-17 06:46] LABS: Platelet Estimate Adequate
[2020-12-17 06:47] LABS: Anisocytosis Slight; Poikilocytosis Slight
[2020-12-17] MEDS: MIDAZOLAM 100 MG in SODIUM CHLORIDE 0.9% 80 ML IV PRN (08:15)
[2020-12-17] MEDS: METOPROLOL TARTRATE 25 MG TABLET PO SCH ×2 (09:00→21:22)
[2020-12-17] MEDS: ACYCLOVIR 40 MG/ML 30 ML/BOTTLE PEG SCH ×3 (09:00→21:25)
[2020-12-17] MEDS: INSULIN GLARGINE 100 UNIT/ML SUBCUT SCH (09:25)
[2020-12-17] MEDS: FUROSEMIDE 40 MG/4 ML VIAL IV SCH ×2 (09:25→15:25)
[2020-12-17] MEDS: ASCORBIC ACID 500 MG TABLET PO SCH ×2 (09:35→21:21)
[2020-12-17] MEDS: TAMSULOSIN 0.4 MG CAPSULE PO SCH (09:35)
[2020-12-17] MEDS: MULTIVITAMIN LIQUID (CENTRUM) 60 ML BOTTLE PO SCH (09:35)
[2020-12-17] MEDS: predniSONE 20 MG TABLET PO SCH (09:35)
[2020-12-17] MEDS: FAMOTIDINE 20 MG TABLET PO SCH ×2 (09:35→21:21)
[2020-12-17] MEDS: POTASSIUM CHLORIDE 20 MEQ/15 ML UDCUP PER TUBE PRN ×3 (09:35→13:15)
[2020-12-17] MEDS: AMIODARONE 200 MG TABLET PO SCH ×2 (09:35→21:22)
[2020-12-17] MEDS: ASPIRIN CHEW 81 MG TABLET PO SCH (09:35)
[2020-12-17] MEDS: ZINC GLUCONATE 50 MG TABLET PO SCH (09:35)
[2020-12-17] MEDS: CHOLECALCIFEROL 1,000 UNIT TABLET PO SCH (09:35)
[2020-12-17] MEDS: FLUTICASONE 50 MCG NASAL SPRAY 16 GM BOTTLE BOTH NARES SCH ×2 (09:40→21:25)
[2020-12-17] MEDS: LORazepam 2 MG/1 ML VIAL IV PRN ×2 (12:10→20:22)
[2020-12-17] MEDS: NOREPINEPHRINE 8 MG in SODIUM CHLORIDE 0.9% 242 ML IV PRN (13:15)
[2020-12-17] MEDS: ENOXAPARIN 40 MG/0.4 ML SYRINGE SUBCUT SCH (17:35)
[2020-12-17] MEDS: SIMVASTATIN 20 MG TABLET PO SCH (21:22)
[2020-12-17] MEDS: QUEtiapine 25 MG TABLET PO SCH (21:22)
[2020-12-18] MEDS: ALBUTEROL/IPRATROPIUM 3 ML NEB RESP TX SCH ×6 (00:15→19:34)
[2020-12-18] MEDS: INSULIN LISPRO 100 UNIT/ML SUBCUT SCH ×5 (00:16→23:54)
[2020-12-18] MEDS: fentaNYL INJ 2,500 MCG in SODIUM CHLORIDE 0.9% 450 ML IV PRN ×3 (01:08→23:53)
[2020-12-18] MEDS: DEXMEDETOMIDINE 400 MCG in SODIUM CHLORIDE 0.9% 96 ML IV PRN ×3 (01:52→15:55)
[2020-12-18] MEDS: MIDAZOLAM 100 MG in SODIUM CHLORIDE 0.9% 80 ML IV PRN ×2 (02:00→22:31)
[2020-12-18] MEDS: NOREPINEPHRINE 8 MG in SODIUM CHLORIDE 0.9% 242 ML IV PRN (02:59)
[2020-12-18 03:49] LABS: Basophils % 0.2 % (0.0-0.8); Eosinophils # 0.1 10*3/uL (0.0-0.87); Eosinophils % 1.4 % (0.00-10.9); Hematocrit 29.6 VOL% (42.0-52.0); Immature Granulocytes Absolute 0.04 #; Lymphocytes # 0.5 10*3/uL (1.4-4.0); Lymphocytes % 11.6 % (21.2-54.2); Mean Corpuscular HGB Conc 30.4 GM/DL (32-36); Mean Corpuscular Volume 94.3 FL (87-102); Monocytes % 3.6 % (1.7-12.7); Neutrophils % 82.2 % (38.7-73.9); Platelet Count 146 T/CUMM (130-400); Red Blood Count 3.14 MC/CUMM (3.8-5.5); Red Cell Distribution Width 16.8 % (9.3-17.3); White Blood Count 4.2 T/CUMM (4-12)
[2020-12-18 03:49] LABS: ABG Base Excess 12.9 MMOL/L (-2.5-2.5); ABG HCO3 36.7 MMOL/L (20-26); ABG Oxygen Saturation 99.5 % (95-100); ABG TCO2 37.8 MMOL/L (23-27)
[2020-12-18 03:56] LABS: ABG PCO2 70.4 MM HG (35-48)
[2020-12-18 04:18] LABS: Calcium 7.4 MG/DL (8.5-10.1); Osmolality,Calculated 285.3 MOS/KG (273-304); Potassium 3.6 MMOL/L (3.5-5.1)
[2020-12-18 04:27] LABS: Eosinophils 2 % (0-10); Hypochromasia 1+; Lymphocytes 10 % (20-55); Microcytosis 1+; Platelet Estimate Adequate; Segmented Neutrophils 84 % (50-85); Total Cells Counted 100
[2020-12-18] MEDS: AMPICILLIN INJ 500 MG in SODIUM CHLORIDE 0.9% 100 ML IV SCH ×4 (05:15→23:56)
[2020-12-18] MEDS: DEXTROSE 5% 1,000 ML IV SCH ×2 (08:50→22:11)
[2020-12-18] MEDS: ZINC GLUCONATE 50 MG TABLET PO SCH (08:59)
[2020-12-18] MEDS: AMIODARONE 200 MG TABLET PO SCH ×2 (09:01→21:10)
[2020-12-18] MEDS: predniSONE 20 MG TABLET PO SCH (09:01)
[2020-12-18] MEDS: TAMSULOSIN 0.4 MG CAPSULE PO SCH (09:01)
[2020-12-18] MEDS: METOPROLOL TARTRATE 25 MG TABLET PO SCH ×2 (09:01→21:10)
[2020-12-18] MEDS: FAMOTIDINE 20 MG TABLET PO SCH ×2 (09:01→21:09)
[2020-12-18] MEDS: CHOLECALCIFEROL 1,000 UNIT TABLET PO SCH (09:01)
[2020-12-18] MEDS: ASPIRIN CHEW 81 MG TABLET PO SCH (09:01)
[2020-12-18] MEDS: ASCORBIC ACID 500 MG TABLET PO SCH ×2 (09:01→21:09)
[2020-12-18] MEDS: INSULIN GLARGINE 100 UNIT/ML SUBCUT SCH (09:02)
[2020-12-18] MEDS: MULTIVITAMIN LIQUID (CENTRUM) 60 ML BOTTLE PO SCH (09:06)
[2020-12-18] MEDS: FUROSEMIDE 40 MG/4 ML VIAL IV SCH ×2 (09:06→16:38)
[2020-12-18] MEDS: FLUTICASONE 50 MCG NASAL SPRAY 16 GM BOTTLE BOTH NARES SCH ×2 (09:07→21:11)
[2020-12-18] MEDS: POTASSIUM CHLORIDE 20 MEQ/15 ML UDCUP PER TUBE PRN ×2 (09:27→13:35)
[2020-12-18] MEDS: ACYCLOVIR 40 MG/ML 30 ML/BOTTLE PEG SCH ×3 (09:28→21:12)
[2020-12-18] MEDS: LORazepam 2 MG/1 ML VIAL IV PRN ×3 (12:08→21:20)
[2020-12-18] MEDS ORDERED: QUEtiapine 25 MG TABLET PO ONE (14:40)
[2020-12-18] MEDS: ENOXAPARIN 40 MG/0.4 ML SYRINGE SUBCUT SCH (18:36)
[2020-12-18] MEDS: SIMVASTATIN 20 MG TABLET PO SCH (21:09)
[2020-12-18] MEDS: QUEtiapine 25 MG TABLET PO SCH (21:09)
[2020-12-18] MEDS: MORPHINE 4 MG/1 ML VIAL IV PRN (23:57)
[2020-12-19] MEDS: ALBUTEROL/IPRATROPIUM 3 ML NEB RESP TX SCH ×7 (00:26→19:27)
[2020-12-19 03:52] LABS: ABG Base Excess 10.5 MMOL/L (-2.5-2.5); ABG HCO3 34.3 MMOL/L (20-26); ABG Oxygen Saturation 99.5 % (95-100); ABG PCO2 59.3 MM HG (35-48); ABG PH 7.403 (7.35-7.45); ABG TCO2 34.4 MMOL/L (23-27); Allen Test Positive; Pt O2 Delivery Device Ventilator
[2020-12-19 05:11] LABS: Basophils % 0.2 % (0.0-0.8); Eosinophils # 0.1 10*3/uL (0.0-0.87); Eosinophils % 1.1 % (0.00-10.9); Hematocrit 27.8 VOL% (42.0-52.0); Hemoglobin 8.7 GM/DL (14.0-18.0); Immature Granulocytes % 0.7 %; Immature Granulocytes Absolute 0.04 #; Mean Corpuscular HGB Conc 31.3 GM/DL (32-36); Mean Corpuscular Volume 92.7 FL (87-102); Mean Platelet Volume 10.1 FL (9.6-12.0); Monocytes % 5.4 % (1.7-12.7); Neutrophils % 74.6 % (38.7-73.9); Platelet Count 144 T/CUMM (130-400); Red Cell Distribution Width 16.6 % (9.3-17.3); White Blood Count 5.4 T/CUMM (4-12)
[2020-12-19] MEDS: AMPICILLIN INJ 500 MG in SODIUM CHLORIDE 0.9% 100 ML IV SCH ×3 (05:15→18:36)
[2020-12-19 05:32] LABS: Calcium 7.8 MG/DL (8.5-10.1); Osmolality,Calculated 276.7 MOS/KG (273-304)
[2020-12-19 05:38] LABS: Band Neutrophils 3 % (0-10); Hypochromasia Slight; Lymphocytes 4 % (20-55); Platelet Estimate Normal; Segmented Neutrophils 89 % (50-85); Total Cells Counted 100
[2020-12-19] MEDS: INSULIN LISPRO 100 UNIT/ML SUBCUT SCH ×3 (06:05→18:36)
[2020-12-19 06:44] LABS: Potassium 3.6 MMOL/L (3.5-5.1)
[2020-12-19] MEDS: ZINC GLUCONATE 50 MG TABLET PO SCH (08:00)
[2020-12-19] MEDS: QUEtiapine 25 MG TABLET PO SCH ×2 (08:00→20:53)
[2020-12-19] MEDS: CHOLECALCIFEROL 1,000 UNIT TABLET PO SCH (08:00)
[2020-12-19] MEDS: AMIODARONE 200 MG TABLET PO SCH ×2 (08:01→20:53)
[2020-12-19] MEDS: FAMOTIDINE 20 MG TABLET PO SCH ×2 (08:01→20:53)
[2020-12-19] MEDS: predniSONE 20 MG TABLET PO SCH (08:01)
[2020-12-19] MEDS: TAMSULOSIN 0.4 MG CAPSULE PO SCH (08:01)
[2020-12-19] MEDS: ASCORBIC ACID 500 MG TABLET PO SCH ×2 (08:01→20:53)
[2020-12-19] MEDS: POTASSIUM CHLORIDE 20 MEQ/15 ML UDCUP PER TUBE PRN ×2 (08:01→12:12)
[2020-12-19] MEDS: METOPROLOL TARTRATE 25 MG TABLET PO SCH ×2 (08:01→20:53)
[2020-12-19] MEDS: ASPIRIN CHEW 81 MG TABLET PO SCH (08:01)
[2020-12-19] MEDS: INSULIN GLARGINE 100 UNIT/ML SUBCUT SCH (08:02)
[2020-12-19] MEDS: FUROSEMIDE 40 MG/4 ML VIAL IV SCH (08:04)
[2020-12-19] MEDS: FLUTICASONE 50 MCG NASAL SPRAY 16 GM BOTTLE BOTH NARES SCH ×2 (08:07→20:50)
[2020-12-19] MEDS: ACYCLOVIR 40 MG/ML 30 ML/BOTTLE PEG SCH ×3 (08:09→20:50)
[2020-12-19] MEDS ORDERED: predniSONE 20 MG TABLET PO SCH (09:24)
[2020-12-19] MEDS: DEXTROSE 5% 1,000 ML IV SCH ×2 (12:05→23:26)
[2020-12-19] MEDS: fentaNYL INJ 2,500 MCG in SODIUM CHLORIDE 0.9% 450 ML IV PRN ×2 (12:06→23:46)
[2020-12-19] MEDS: MIDAZOLAM 100 MG in SODIUM CHLORIDE 0.9% 80 ML IV PRN (12:08)
[2020-12-19] MEDS: MULTIVITAMIN LIQUID (CENTRUM) 60 ML BOTTLE PO SCH (12:10)
[2020-12-19] MEDS: ENOXAPARIN 40 MG/0.4 ML SYRINGE SUBCUT SCH (18:35)
[2020-12-19] MEDS: DOCUSATE SODIUM 100 MG/10 ML UDCUP PO SCH (20:52)
[2020-12-19] MEDS: SIMVASTATIN 20 MG TABLET PO SCH (20:53)
[2020-12-20] MEDS: AMPICILLIN INJ 500 MG in SODIUM CHLORIDE 0.9% 100 ML IV SCH ×2 (00:53→05:35)
[2020-12-20] MEDS: INSULIN LISPRO 100 UNIT/ML SUBCUT SCH ×4 (00:55→17:18)
[2020-12-20 04:15] LABS: Osmolality,Calculated 278.7 MOS/KG (273-304); Potassium 3.8 MMOL/L (3.5-5.1)
[2020-12-20] MEDS: ALBUTEROL/IPRATROPIUM 3 ML NEB RESP TX SCH ×4 (04:22→14:46)
[2020-12-20 04:34] LABS: ABG Base Excess 9.3 MMOL/L (-2.5-2.5); ABG HCO3 33.1 MMOL/L (20-26); ABG Oxygen Saturation 99.4 % (95-100); ABG PCO2 53.7 MM HG (35-48); ABG PH 7.425 (7.35-7.45); ABG TCO2 32.5 MMOL/L (23-27)
[2020-12-20] MEDS: MIDAZOLAM 100 MG in SODIUM CHLORIDE 0.9% 80 ML IV PRN (05:23)
[2020-12-20 06:16] LABS: Eosinophils # 0.1 10*3/uL (0.0-0.87); Eosinophils % 1.7 % (0.00-10.9); Hematocrit 26.7 VOL% (42.0-52.0); Hemoglobin 8.2 GM/DL (14.0-18.0); Immature Granulocytes % 0.8 %; Immature Granulocytes Absolute 0.04 #; Lymphocytes # 0.7 10*3/uL (1.4-4.0); Lymphocytes % 14.7 % (21.2-54.2); Mean Corpuscular HGB Conc 30.7 GM/DL (32-36); Mean Corpuscular Volume 94.3 FL (87-102); Mean Platelet Volume 9.9 FL (9.6-12.0); Monocytes % 4.8 % (1.7-12.7); Platelet Count 151 T/CUMM (130-400); Red Blood Count 2.83 MC/CUMM (3.8-5.5); Red Cell Distribution Width 16.4 % (9.3-17.3); White Blood Count 4.8 T/CUMM (4-12)
[2020-12-20 08:07] LABS: Band Neutrophils 1 % (0-10); Lymphocytes 11 % (20-55); Platelet Estimate Adequate; Segmented Neutrophils 82 % (50-85); Total Cells Counted 100
[2020-12-20 08:08] LABS: Hypochromasia 1+; Microcytosis 1+
[2020-12-20] MEDS: INSULIN GLARGINE 100 UNIT/ML SUBCUT SCH (08:26)
[2020-12-20] MEDS: ASPIRIN CHEW 81 MG TABLET PO SCH (08:27)
[2020-12-20] MEDS: CHOLECALCIFEROL 1,000 UNIT TABLET PO SCH (08:27)
[2020-12-20] MEDS: DOCUSATE SODIUM 100 MG/10 ML UDCUP PO SCH (08:27)
[2020-12-20] MEDS: ZINC GLUCONATE 50 MG TABLET PO SCH (08:27)
[2020-12-20] MEDS: METOPROLOL TARTRATE 25 MG TABLET PO SCH (08:28)
[2020-12-20] MEDS: ASCORBIC ACID 500 MG TABLET PO SCH (08:28)
[2020-12-20] MEDS: TAMSULOSIN 0.4 MG CAPSULE PO SCH (08:28)
[2020-12-20] MEDS: QUEtiapine 25 MG TABLET PO SCH (08:28)
[2020-12-20] MEDS: FAMOTIDINE 20 MG TABLET PO SCH (08:28)
[2020-12-20] MEDS: FLUTICASONE 50 MCG NASAL SPRAY 16 GM BOTTLE BOTH NARES SCH (08:29)
[2020-12-20] MEDS: ACYCLOVIR 40 MG/ML 30 ML/BOTTLE PEG SCH ×2 (08:29→15:21)
[2020-12-20] MEDS: AMIODARONE 200 MG TABLET PO SCH (08:32)
[2020-12-20] MEDS: MULTIVITAMIN LIQUID (CENTRUM) 60 ML BOTTLE PO SCH (08:33)
[2020-12-20] MEDS: fentaNYL INJ 2,500 MCG in SODIUM CHLORIDE 0.9% 450 ML IV PRN (11:48)
[2020-12-20] MEDS: DEXTROSE 5% 1,000 ML IV SCH (14:07)
[2020-12-20 17:10] VITALS: BP 108/58
[2020-12-20] MEDS: ENOXAPARIN 40 MG/0.4 ML SYRINGE SUBCUT SCH (17:18)
== END 2020-12-20 18:10 | DRG 4 ==
LOC: EDUNIT# → EDBD → N.ED 12:29 → N.EDINP 15:37 → SUATTDRO 15:37 → N.2E 16:35 → N.CC 11-24 09:10 → N.CVR 12-03 19:04 → N.ICU 12-06 18:39
PROVIDERS: ADMIT Internal Medicine; ATTEND Internal Medicine
PROC: EGDWPEG (ICD-10-PCS; 2020-12-14 08:35)